=== PATIENT | female | born 1930 | race Caucasian/White ===

== ENCOUNTER 2018-10-21 22:39 | Inpatient (IN) ==
[2018-10-21] MEDS ORDERED: ONDANSETRON 4 MG/2 ML VIAL IV STA (23:43)
[2018-10-21] MEDS ORDERED: DILTIAZEM 50 MG/10 ML VIAL IV STA (23:43)
[2018-10-22 00:05] LABS: Basophils % 0.4 % (0.0-0.8); Eosinophils # 0.1 10*3/uL (0.0-0.87); Eosinophils % 1.4 % (0.00-10.9); Hematocrit 39.2 VOL% (35.7-47.0); Hemoglobin 13.1 GM/DL (12.0-16.0); Immature Granulocytes % 0.5 %; Immature Granulocytes Absolute 0.05 #; Lymphocytes # 1.8 10*3/uL (1.4-4.0); Lymphocytes % 17.8 % (21.3-54.2); Mean Corpuscular HGB Conc 33.4 GM/DL (32-36); Mean Corpuscular Volume 95.8 FL (87-102); Mean Platelet Volume 10.2 FL (9.6-12.0); Monocytes % 9.4 % (1.7-12.7); Neutrophils % 70.5 % (38.7-73.9); Platelet Count 214 T/CUMM (130-400); Red Blood Count 4.09 MC/CUMM (3.8-5.5); Red Cell Distribution Width 15.4 % (9.3-17.3); White Blood Count 10.2 T/CUMM (4-12)
[2018-10-22 00:17] LABS: PT Patient Result 11.1 SECS; Partial Thromboplastin Time 26.4 SECS (0-40)
[2018-10-22 00:31] LABS: Alanine Aminotransferase 18 U/L (13-56); Albumin 3.6 G/DL (3.4-5.0); Alkaline Phosphatase 88 U/L (45-117); Aspartate Amino Transferase 15 U/L (0-37); Bilirubin,Total < 0.39 MG/DL (0.2-1.0); Blood Urea Nitrogen 34 MG/DL (7-18); Calcium 9.3 MG/DL (8.5-10.1); Glucose 151 MG/DL (74-106); Osmolality,Calculated 287.5 MOS/KG (273-304); Total Protein 7.9 G/DL (6.4-8.3); Troponin I < 0.015 NG/ML (0.00-0.045)
[2018-10-22] MEDS ORDERED: dilTIAZem Drip 125 MG/125 ML PREMIX IV SCH ×2 (01:00→02:00)
[2018-10-22] MEDS ORDERED: diphenhydrAMINE CAP 25 MG CAPSULE PO PRN (01:50)
[2018-10-22] MEDS ORDERED: ONDANSETRON 4 MG/2 ML VIAL IV PRN (01:50)
[2018-10-22] MEDS ORDERED: ACETAMINOPHEN 325 MG TABLET PO PRN (01:50)
[2018-10-22 02:22] LABS: Risk Ratio 4.23; VLDL CHOLESTEROL 31.2 MG/DL
[2018-10-22] MEDS ORDERED: hydrALAZINE 20 MG/1 ML VIAL IV PRN (04:22)
[2018-10-22] MEDS: ENOXAPARIN 80 MG/0.8 ML SYRINGE SUBCUT SCH ×2 (04:30→14:51)
[2018-10-22 07:32] LABS: Barbiturates Screen,Urine Negative (Negative); Benzodiazepines Screen,Urine Negative (Negative); Cannabinoid Screen,Urine Negative (Negative); Opiate Screen,Urine Negative (Negative); Phencyclidine Screen,Urine Negative (Negative)
[2018-10-22 07:33] LABS: Apearance,Urine CLOUDY (Clear); Bilirubin,Urine Negative (Negative); Blood, Urine Small mg/dL (Negative); Glucose,Urine (UA) Negative (Negative); Ketones,Urine Negative (Negative); Nitrite,Urine Positive (Negative); Protein,Urine Negative; RBC,Urine 5 /HPF (0-4); Urine Color Yellow (Yellow); Urine Specific Gravity 1.009 (1.001-1.035); Urine Urobilinogen < 2.0 EU/DL (0.2-1.0); WBC,Urine 230 /HPF (0-6)
[2018-10-22] MEDS ORDERED: METOPROLOL TARTRATE 25 MG TABLET PO SCH (09:00)
[2018-10-22] MEDS ORDERED: NICOTINE 21 MG/24 HR PATCH TRANSDERM PRN (09:00)
[2018-10-22] MEDS: PANTOPRAZOLE 40 MG TABLET PO SCH (09:27)
[2018-10-22] MEDS ORDERED: CLOPIDOGREL 75 MG TABLET PO SCH ×2 (14:00)
[2018-10-22] MEDS ORDERED: ASPIRIN CHEW 81 MG TABLET PO SCH (14:00)
[2018-10-22] MEDS: DILTIAZEM 30 MG TABLET PO SCH ×2 (14:50→21:40)
[2018-10-22] MEDS: OLMESARTAN 20 MG TABLET PO SCH (14:51)
[2018-10-22] MEDS ORDERED: MEPERIDINE 50 MG PO PRN (15:14)
[2018-10-22 16:30] LABS: CKMB % 7.5 %
[2018-10-22 16:33] LABS: Troponin I 2.93 NG/ML (0.00-0.045)
[2018-10-22] MEDS ORDERED: ENALAPRIL 2.5 MG/2 ML VIAL IV ONE (17:16)
[2018-10-22] MEDS ORDERED: AMIODARONE INJ 450 MG in DEXTROSE 5% 241 ML IV SCH ×2 (17:30→23:30)
[2018-10-22] MEDS ORDERED: WARFARIN 3 MG TABLET PO SCH (18:00)
[2018-10-22 19:54] LABS: CKMB % 6.8 %
[2018-10-22 19:57] LABS: Troponin I 2.09 NG/ML (0.00-0.045)
[2018-10-22] MEDS: METOPROLOL TARTRATE 25 MG TABLET PO SCH (21:39)
[2018-10-23] MEDS: ENOXAPARIN 80 MG/0.8 ML SYRINGE SUBCUT SCH ×2 (03:04→15:03)
[2018-10-23] MEDS ORDERED: MEPERIDINE 50 MG/1 ML VIAL IV PRN (05:22)
[2018-10-23 05:54] LABS: Basophils % 0.5 % (0.0-0.8); Eosinophils # 0.2 10*3/uL (0.0-0.87); Eosinophils % 2.4 % (0.00-10.9); Hemoglobin 12.5 GM/DL (12.0-16.0); Immature Granulocytes % 0.2 %; Immature Granulocytes Absolute 0.02 #; Lymphocytes # 2.3 10*3/uL (1.4-4.0); Lymphocytes % 26.2 % (21.3-54.2); Mean Corpuscular HGB Conc 36.8 GM/DL (32-36); Mean Corpuscular Volume 101.5 FL (87-102); Mean Platelet Volume 10.6 FL (9.6-12.0); Monocytes % 10.7 % (1.7-12.7); Platelet Count 212 T/CUMM (130-400); Red Blood Count 3.35 MC/CUMM (3.8-5.5); Red Cell Distribution Width 19.2 % (9.3-17.3); White Blood Count 8.6 T/CUMM (4-12)
[2018-10-23 06:03] LABS: PT Patient Result 10.9 SECS
[2018-10-23 06:12] LABS: Calcium 8.7 MG/DL (8.5-10.1); Osmolality,Calculated 286.3 MOS/KG (273-304)
[2018-10-23] MEDS: GABAPENTIN 300 MG CAPSULE PO SCH ×3 (09:14→20:51)
[2018-10-23] MEDS: DILTIAZEM 30 MG TABLET PO SCH (09:14)
[2018-10-23] MEDS: METOPROLOL TARTRATE 25 MG TABLET PO SCH ×2 (09:16→20:52)
[2018-10-23] MEDS: AMIODARONE 200 MG TABLET PO SCH ×2 (09:16→20:50)
[2018-10-23] MEDS: OLMESARTAN 20 MG TABLET PO SCH (09:16)
[2018-10-23] MEDS: PANTOPRAZOLE 40 MG TABLET PO SCH (09:16)
[2018-10-23] MEDS ORDERED: MEPERIDINE 50 MG PO PRN (09:36)
[2018-10-23] MEDS ORDERED: DILTIAZEM CD 120 MG CAPSULE PO SCH (10:00)
[2018-10-23] MEDS ORDERED: amLODIPine 5 MG TABLET PO SCH (10:00)
[2018-10-23] MEDS: MEPERIDINE 50 MG/1 ML VIAL IV SCH ×3 (11:00→23:07)
[2018-10-23] MEDS: hydrALAZINE 25 MG TABLET PO SCH ×2 (15:05→20:50)
[2018-10-23] MEDS ORDERED: FAMOTIDINE 20 MG TABLET PO SCH (21:00)
[2018-10-24] MEDS: ENOXAPARIN 80 MG/0.8 ML SYRINGE SUBCUT SCH (03:15)
[2018-10-24] MEDS ORDERED: hydrALAZINE 25 MG TABLET PO SCH (03:55)
[2018-10-24] MEDS: MEPERIDINE 50 MG/1 ML VIAL IV SCH ×2 (04:27→11:31)
[2018-10-24 05:22] LABS: PT Patient Result 10.7 SECS
[2018-10-24 05:50] LABS: Troponin I 0.706 NG/ML (0.00-0.045)
[2018-10-24] MEDS: GABAPENTIN 300 MG CAPSULE PO SCH (08:40)
[2018-10-24] MEDS: OLMESARTAN 20 MG TABLET PO SCH (08:42)
[2018-10-24] MEDS: PANTOPRAZOLE 40 MG TABLET PO SCH (08:42)
[2018-10-24] MEDS: AMIODARONE 200 MG TABLET PO SCH (08:42)
[2018-10-24] MEDS ORDERED: CARVEDILOL 6.25 MG TABLET PO SCH (09:00)
[2018-10-24] MEDS ORDERED: cefTRIAXone 1,000 MG in SYRINGE 1 EACH IV ONE (11:35)
[2018-10-24 13:02] VITALS: BP 144/65
[2018-10-24] MEDS ORDERED: WARFARIN 3 MG TABLET PO SCH (18:00)
[2018-10-24] MEDS ORDERED: EZETIMIBE 10 MG TABLET PO SCH (21:00)
== END 2018-10-24 15:30 | disposition home or self-care (01) | DRG 281 ==
LOC: N.ED 22:39 → N.EDINP 22:39 → N.TELES 10-22 03:08
PROVIDERS: ADMIT Internal Medicine Cardiovascular Disease; ATTEND Internal Medicine Cardiovascular Disease

== ENCOUNTER 2019-04-03 17:16 | Inpatient (IN) ==
[2019-04-03 18:21] LABS: Albumin 1.9 G/DL (3.4-5.0); Bilirubin,Total 0.9 MG/DL (0.2-1.0); Calcium 7.6 MG/DL (8.5-10.1); Osmolality,Calculated 283.4 MOS/KG (273-304); Total Protein 5.1 G/DL (6.4-8.3)
[2019-04-03 18:23] LABS: Basophils # 0.1 10*3/uL (0.0-0.2); Basophils % 0.2 % (0.0-0.8); Eosinophils % 0.1 % (0.00-10.9); Hematocrit 29.2 VOL% (35.7-47.0); Hemoglobin 9.8 GM/DL (12.0-16.0); Immature Granulocytes % 3.5 %; Immature Granulocytes Absolute 1.32 #; Lymphocytes # 0.8 10*3/uL (1.4-4.0); Mean Corpuscular HGB Conc 33.6 GM/DL (32-36); Mean Corpuscular Volume 98.3 FL (87-102); Mean Platelet Volume 10.9 FL (9.6-12.0); Monocytes % 4.5 % (1.7-12.7); NRBC # 0.03 10*3/uL; Neutrophils % 89.7 % (38.7-73.9); Platelet Count 272 T/CUMM (130-400); Red Blood Count 2.97 MC/CUMM (3.8-5.5); Red Cell Distribution Width 14.7 % (9.3-17.3); White Blood Count 37.4 T/CUMM (4-12)
[2019-04-03 18:51] LABS: Apearance,Urine Slightly Hazy (Clear); Bilirubin,Urine Negative (Negative); Blood, Urine Negative (Negative); Glucose,Urine (UA) Negative (Negative); Hyaline Casts,Urine 4 /LPF (0-3); Ketones,Urine Negative (Negative); Mucus,Urine Occasional /LPF (Occasional); Nitrite,Urine Negative (Negative); Protein,Urine Negative; RBC,Urine 1 /HPF (0-4); Squamous Epithelial Cell,Urine Occasional /HPF (0-10); Urine Color Amber (Yellow); Urine Specific Gravity 1.025 (1.001-1.035); Urine Urobilinogen < 2.0 EU/DL (0.2-1.0); WBC,Urine 6 /HPF (0-6)
[2019-04-03] MEDS ORDERED: SODIUM CHLORIDE 0.9% 1,000 ML IV STA (19:01)
[2019-04-03 19:07] LABS: Band Neutrophils 8 % (0-10); Lymphocytes 1 % (20-55); Platelet Estimate Normal; Segmented Neutrophils 87 % (50-85); Total Cells Counted 100
[2019-04-03] MEDS ORDERED: ONDANSETRON 4 MG/2 ML VIAL IV PRN (23:07)
[2019-04-03] MEDS: SODIUM CHLORIDE 0.9% 1,000 ML IV SCH (23:29)
[2019-04-04] MEDS: VANCOMYCIN 50 MG/ML 60 ML/BOTTLE PO SCH ×5 (01:00→23:11)
[2019-04-04] MEDS: PIPERACILLIN/TAZOBACTAM 3,375 MG in SODIUM CHLORIDE 0.9% 100 ML IV SCH ×3 (01:16→17:49)
[2019-04-04] MEDS: MEPERIDINE 50 MG/1 ML VIAL IV PRN ×3 (02:32→14:34)
[2019-04-04 06:00] LABS: Basophils # 0.1 10*3/uL (0.0-0.2); Basophils % 0.3 % (0.0-0.8); Eosinophils % 0.1 % (0.00-10.9); Hematocrit 29.9 VOL% (35.7-47.0); Hemoglobin 10.1 GM/DL (12.0-16.0); Immature Granulocytes % 5.3 %; Immature Granulocytes Absolute 1.85 #; Lymphocytes # 0.8 10*3/uL (1.4-4.0); Lymphocytes % 2.4 % (21.3-54.2); Mean Corpuscular HGB Conc 33.8 GM/DL (32-36); Mean Platelet Volume 11.1 FL (9.6-12.0); Monocytes % 4.5 % (1.7-12.7); NRBC # 0.06 10*3/uL; Neutrophils % 87.4 % (38.7-73.9); Platelet Count 272 T/CUMM (130-400); Red Blood Count 3.05 MC/CUMM (3.8-5.5); Red Cell Distribution Width 14.8 % (9.3-17.3)
[2019-04-04 06:25] LABS: Band Neutrophils 11 % (0-10); Lymphocytes 5 % (20-55); Segmented Neutrophils 81 % (50-85); Total Cells Counted 100
[2019-04-04 06:26] LABS: Anisocytosis 1+; Platelet Estimate Normal
[2019-04-04 06:31] LABS: Albumin 1.6 G/DL (3.4-5.0); Bilirubin,Total 0.9 MG/DL (0.2-1.0); Calcium 7.3 MG/DL (8.5-10.1); Risk Ratio 10.21; Thyroid Stimulating Hormone 0.303 uIU/ml (0.358-3.74); Total Protein 4.6 G/DL (6.4-8.3); VLDL CHOLESTEROL 27.8 MG/DL
[2019-04-04] MEDS ORDERED: MAGNESIUM SULF RIDER 2 GM in PREMIX 1 EACH IV PRN (07:15)
[2019-04-04] MEDS ORDERED: MAGNESIUM SULF RIDER 4 GM in PREMIX 1 EACH IV PRN (07:15)
[2019-04-04 08:07] LABS: INR 1.6; PT Patient Result 17.3 SECS (9.6-12.2)
[2019-04-04] MEDS ORDERED: carvediloL 6.25 MG TABLET PO SCH (09:00)
[2019-04-04] MEDS: OLMESARTAN 20 MG TABLET PO SCH (09:15)
[2019-04-04] MEDS: BUDESONIDE/FORMOTEROL 80-4.5 INHALER 6.9 GM INH SCH ×2 (09:16→20:46)
[2019-04-04] MEDS: ENOXAPARIN 80 MG/0.8 ML SYRINGE SUBCUT SCH ×2 (12:36→23:11)
[2019-04-04] MEDS: SODIUM CHLORIDE 0.9% 1,000 ML IV SCH (12:37)
[2019-04-04] MEDS: GABAPENTIN 300 MG CAPSULE PO SCH ×2 (14:34→20:46)
[2019-04-04] MEDS ORDERED: MEPERIDINE 50 MG/1 ML VIAL IV PRN (15:32)
[2019-04-04] MEDS: WARFARIN 5 MG TABLET PO SCH (17:49)
[2019-04-04] MEDS: carvediloL 6.25 MG TABLET PO SCH (17:50)
[2019-04-04] MEDS: CHOLECALCIFEROL 1,000 UNIT TABLET PO SCH (20:46)
[2019-04-05] MEDS: PIPERACILLIN/TAZOBACTAM 3,375 MG in SODIUM CHLORIDE 0.9% 100 ML IV SCH ×2 (00:47→12:45)
[2019-04-05] MEDS: SODIUM CHLORIDE 0.9% 1,000 ML IV SCH ×2 (03:44→16:01)
[2019-04-05 06:09] LABS: Basophils # 0.2 10*3/uL (0.0-0.2); Basophils % 0.4 % (0.0-0.8); Eosinophils # 0.1 10*3/uL (0.0-0.87); Eosinophils % 0.1 % (0.00-10.9); Hematocrit 32.1 VOL% (35.7-47.0); Hemoglobin 10.6 GM/DL (12.0-16.0); Immature Granulocytes % 3.5 %; Immature Granulocytes Absolute 1.21 #; Lymphocytes # 1.1 10*3/uL (1.4-4.0); Lymphocytes % 3.2 % (21.3-54.2); Mean Corpuscular Volume 95.3 FL (87-102); Mean Platelet Volume 11.1 FL (9.6-12.0); Monocytes % 6.9 % (1.7-12.7); NRBC # 0.18 10*3/uL; Neutrophils % 85.9 % (38.7-73.9); Platelet Count 284 T/CUMM (130-400); Red Blood Count 3.37 MC/CUMM (3.8-5.5); White Blood Count 34.6 T/CUMM (4-12)
[2019-04-05] MEDS: VANCOMYCIN 50 MG/ML 60 ML/BOTTLE PO SCH ×3 (06:15→18:10)
[2019-04-05 06:16] LABS: PT Patient Result 21.5 SECS (9.6-12.2)
[2019-04-05 06:27] LABS: Albumin 1.3 G/DL (3.4-5.0); Bilirubin,Total 0.7 MG/DL (0.2-1.0); Calcium 7.5 MG/DL (8.5-10.1); Osmolality,Calculated 291.1 MOS/KG (273-304); Total Protein 4.3 G/DL (6.4-8.3)
[2019-04-05 06:57] LABS: Burr Cells Slight; Eosinophils 1 % (0-10); Lymphocytes 5 % (20-55); Ovalocytes Slight; Platelet Estimate Adequate; Segmented Neutrophils 85 % (50-85); Total Cells Counted 100
[2019-04-05] MEDS ORDERED: Tadalafil [Cialis] 5 MG PO SCH (09:00)
[2019-04-05] MEDS: CHOLECALCIFEROL 1,000 UNIT TABLET PO SCH ×2 (10:53→20:57)
[2019-04-05] MEDS: GABAPENTIN 300 MG CAPSULE PO SCH ×3 (10:53→20:57)
[2019-04-05] MEDS: BUDESONIDE/FORMOTEROL 80-4.5 INHALER 6.9 GM INH SCH ×2 (10:53→20:57)
[2019-04-05] MEDS: carvediloL 6.25 MG TABLET PO SCH ×2 (10:53→18:10)
[2019-04-05] MEDS ORDERED: TUBERCULIN SKIN TEST 0.1 ML SYRINGE INTRADERM ONE (12:17)
[2019-04-05] MEDS: OLMESARTAN 20 MG TABLET PO SCH (12:45)
[2019-04-05 16:53] LABS: Free T4 (Free Thyroxine) 0.88 NG/DL (0.76-1.46)
[2019-04-05] MEDS: WARFARIN 5 MG TABLET PO SCH (18:10)
[2019-04-06] MEDS: SODIUM CHLORIDE 0.9% 1,000 ML IV SCH ×2 (00:46→12:43)
[2019-04-06] MEDS: VANCOMYCIN 50 MG/ML 60 ML/BOTTLE PO SCH ×4 (00:46→21:51)
[2019-04-06 07:36] LABS: Basophils # 0.1 10*3/uL (0.0-0.2); Basophils % 0.3 % (0.0-0.8); Eosinophils # 0.1 10*3/uL (0.0-0.87); Eosinophils % 0.2 % (0.00-10.9); Hematocrit 31.9 VOL% (35.7-47.0); Hemoglobin 10.4 GM/DL (12.0-16.0); Immature Granulocytes % 3.9 %; Immature Granulocytes Absolute 1.34 #; Lymphocytes # 1.3 10*3/uL (1.4-4.0); Lymphocytes % 3.9 % (21.3-54.2); Mean Corpuscular HGB Conc 32.6 GM/DL (32-36); Mean Corpuscular Volume 95.8 FL (87-102); Mean Platelet Volume 10.3 FL (9.6-12.0); Monocytes % 5.2 % (1.7-12.7); NRBC # 0.03 10*3/uL; Neutrophils % 86.5 % (38.7-73.9); Platelet Count 310 T/CUMM (130-400); Red Blood Count 3.33 MC/CUMM (3.8-5.5); Red Cell Distribution Width 15.3 % (9.3-17.3); White Blood Count 34.2 T/CUMM (4-12)
[2019-04-06 07:43] LABS: INR 2.4
[2019-04-06 07:58] LABS: Band Neutrophils 9 % (0-10); Burr Cells Slight; Lymphocytes 5 % (20-55); Nucleated Red Blood Cells 1 (0-5); Segmented Neutrophils 85 % (50-85); Total Cells Counted 100
[2019-04-06 07:59] LABS: Hypochromasia Slight; Microcytosis Slight; Platelet Estimate Normal
[2019-04-06 08:02] LABS: Albumin 1.5 G/DL (3.4-5.0); Bilirubin,Total 0.7 MG/DL (0.2-1.0); Calcium 7.4 MG/DL (8.5-10.1); Osmolality,Calculated 293.1 MOS/KG (273-304); Total Protein 4.7 G/DL (6.4-8.3)
[2019-04-06] MEDS: GABAPENTIN 300 MG CAPSULE PO SCH ×3 (10:10→21:48)
[2019-04-06] MEDS: carvediloL 6.25 MG TABLET PO SCH ×2 (10:10→17:23)
[2019-04-06] MEDS: BUDESONIDE/FORMOTEROL 80-4.5 INHALER 6.9 GM INH SCH ×2 (10:11→21:52)
[2019-04-06] MEDS: CHOLECALCIFEROL 1,000 UNIT TABLET PO SCH ×2 (10:11→21:48)
[2019-04-06] MEDS: WARFARIN 5 MG TABLET PO SCH (21:48)
[2019-04-07] MEDS: SODIUM CHLORIDE 0.9% 1,000 ML IV SCH ×2 (00:12→12:40)
[2019-04-07] MEDS: VANCOMYCIN 50 MG/ML 60 ML/BOTTLE PO SCH ×4 (00:13→17:13)
[2019-04-07 05:09] LABS: Basophils # 0.1 10*3/uL (0.0-0.2); Basophils % 0.3 % (0.0-0.8); Eosinophils # 0.1 10*3/uL (0.0-0.87); Eosinophils % 0.3 % (0.00-10.9); Hematocrit 27.9 VOL% (35.7-47.0); Hemoglobin 9.1 GM/DL (12.0-16.0); Immature Granulocytes % 3.3 %; Lymphocytes % 4.3 % (21.3-54.2); Mean Corpuscular HGB Conc 32.6 GM/DL (32-36); Mean Corpuscular Volume 94.9 FL (87-102); Mean Platelet Volume 10.4 FL (9.6-12.0); Monocytes % 6.4 % (1.7-12.7); Neutrophils % 85.4 % (38.7-73.9); Platelet Count 288 T/CUMM (130-400); Red Blood Count 2.94 MC/CUMM (3.8-5.5); Red Cell Distribution Width 15.3 % (9.3-17.3)
[2019-04-07 05:43] LABS: INR 2.8
[2019-04-07 05:48] LABS: Albumin 1.5 G/DL (3.4-5.0); Band Neutrophils 1 % (0-10); Bilirubin,Total 0.5 MG/DL (0.2-1.0); Calcium 7.4 MG/DL (8.5-10.1); Lymphocytes 4 % (20-55); Osmolality,Calculated 294.8 MOS/KG (273-304); Platelet Estimate Adequate; Segmented Neutrophils 89 % (50-85); Total Cells Counted 100; Total Protein 4.5 G/DL (6.4-8.3)
[2019-04-07 05:49] LABS: Burr Cells Slight; Hypochromasia Slight; Microcytosis Slight
[2019-04-07 06:11] LABS: PT Patient Result 29.9 SECS (9.6-12.2)
[2019-04-07] MEDS: GABAPENTIN 300 MG CAPSULE PO SCH ×3 (09:06→21:41)
[2019-04-07] MEDS: CHOLECALCIFEROL 1,000 UNIT TABLET PO SCH ×2 (09:06→21:42)
[2019-04-07] MEDS: carvediloL 6.25 MG TABLET PO SCH ×2 (09:07→17:12)
[2019-04-07] MEDS: BUDESONIDE/FORMOTEROL 80-4.5 INHALER 6.9 GM INH SCH ×2 (09:07→22:26)
[2019-04-07] MEDS: WARFARIN 5 MG TABLET PO SCH (17:12)
[2019-04-07] MEDS: ACETAMINOPHEN 325 MG TABLET PO PRN (21:42)
[2019-04-08] MEDS: VANCOMYCIN 50 MG/ML 60 ML/BOTTLE PO SCH ×4 (00:46→17:33)
[2019-04-08 04:48] LABS: Basophils % 0.2 % (0.0-0.8); Eosinophils # 0.3 10*3/uL (0.0-0.87); Eosinophils % 1.7 % (0.00-10.9); Hematocrit 28.8 VOL% (35.7-47.0); Hemoglobin 9.2 GM/DL (12.0-16.0); Immature Granulocytes Absolute 0.47 #; Lymphocytes # 0.9 10*3/uL (1.4-4.0); Lymphocytes % 5.9 % (21.3-54.2); Mean Corpuscular HGB Conc 31.9 GM/DL (32-36); Mean Corpuscular Volume 97.3 FL (87-102); Mean Platelet Volume 10.6 FL (9.6-12.0); Monocytes % 6.9 % (1.7-12.7); Neutrophils % 82.3 % (38.7-73.9); Platelet Count 245 T/CUMM (130-400); Red Blood Count 2.96 MC/CUMM (3.8-5.5); Red Cell Distribution Width 15.5 % (9.3-17.3); White Blood Count 15.5 T/CUMM (4-12)
[2019-04-08 05:25] LABS: Albumin 1.6 G/DL (3.4-5.0); Bilirubin,Total 0.8 MG/DL (0.2-1.0); Calcium 7.5 MG/DL (8.5-10.1); Osmolality,Calculated 289.8 MOS/KG (273-304); Total Protein 4.6 G/DL (6.4-8.3)
[2019-04-08 06:10] LABS: INR 3.6
[2019-04-08 06:15] LABS: PT Patient Result 38.9 SECS (9.6-12.2)
[2019-04-08] MEDS: ACETAMINOPHEN 325 MG TABLET PO PRN ×2 (06:51→21:45)
[2019-04-08] MEDS: CHOLECALCIFEROL 1,000 UNIT TABLET PO SCH ×2 (09:25→21:45)
[2019-04-08] MEDS: GABAPENTIN 300 MG CAPSULE PO SCH ×3 (09:26→21:45)
[2019-04-08] MEDS: carvediloL 6.25 MG TABLET PO SCH ×2 (09:26→17:31)
[2019-04-08] MEDS: BUDESONIDE/FORMOTEROL 80-4.5 INHALER 6.9 GM INH SCH ×2 (09:26→21:48)
[2019-04-08] MEDS: ASPIRIN EC 81 MG TABLET PO SCH (14:16)
[2019-04-08] MEDS ORDERED: LACTULOSE 20 GM/30 ML UDCUP PO ONE (16:08)
[2019-04-08] MEDS ORDERED: BISACODYL 5 MG TABLET PO ONE (16:09)
[2019-04-08] MEDS ORDERED: BISACODYL 10 MG SUPP RECTAL ONE (21:00)
[2019-04-08] MEDS ORDERED: ROSUVASTATIN 10 MG TABLET PO SCH (21:00)
[2019-04-09] MEDS: VANCOMYCIN 50 MG/ML 60 ML/BOTTLE PO SCH ×3 (00:36→11:46)
[2019-04-09] MEDS: ACETAMINOPHEN 325 MG TABLET PO PRN (06:56)
[2019-04-09 07:03] LABS: Basophils % 0.1 % (0.0-0.8); Eosinophils # 0.2 10*3/uL (0.0-0.87); Hemoglobin 9.6 GM/DL (12.0-16.0); Immature Granulocytes % 1.9 %; Immature Granulocytes Absolute 0.28 #; Lymphocytes # 0.9 10*3/uL (1.4-4.0); Lymphocytes % 6.1 % (21.3-54.2); Mean Corpuscular HGB Conc 33.1 GM/DL (32-36); Mean Corpuscular Volume 98.3 FL (87-102); Mean Platelet Volume 10.3 FL (9.6-12.0); Neutrophils % 82.9 % (38.7-73.9); Platelet Count 216 T/CUMM (130-400); Red Blood Count 2.95 MC/CUMM (3.8-5.5); Red Cell Distribution Width 15.7 % (9.3-17.3); White Blood Count 14.9 T/CUMM (4-12)
[2019-04-09 07:25] LABS: Albumin 1.6 G/DL (3.4-5.0); Bilirubin,Total 0.5 MG/DL (0.2-1.0); Calcium 7.5 MG/DL (8.5-10.1); Osmolality,Calculated 285.7 MOS/KG (273-304); Total Protein 4.6 G/DL (6.4-8.3)
[2019-04-09] MEDS ORDERED: ZINC OXIDE PASTE 113 GM TUBE TOP PRN (08:35)
[2019-04-09] MEDS: ASPIRIN EC 81 MG TABLET PO SCH (08:37)
[2019-04-09] MEDS: carvediloL 6.25 MG TABLET PO SCH (08:37)
[2019-04-09] MEDS: GABAPENTIN 300 MG CAPSULE PO SCH (08:37)
[2019-04-09] MEDS: CHOLECALCIFEROL 1,000 UNIT TABLET PO SCH (08:37)
[2019-04-09] MEDS: BUDESONIDE/FORMOTEROL 80-4.5 INHALER 6.9 GM INH SCH (08:43)
[2019-04-09 11:26] VITALS: BP 92/49
== END 2019-04-09 12:10 | disposition home or self-care (01) | DRG 871 ==
LOC: EDUNIT# → EDBD → N.ED 17:16 → SUATTDRO 20:48 → N.EDINP 20:48 → N.TELEN 22:33 → N.5E 04-06 19:23
PROVIDERS: ADMIT Internal Medicine; ATTEND Hospitalist

== ENCOUNTER 2019-04-11 09:26 | Inpatient (IN) ==
[2019-04-11] MEDS ORDERED: ONDANSETRON 4 MG/2 ML VIAL IV STA (09:57)
[2019-04-11] MEDS ORDERED: SODIUM CHLORIDE 0.9% 500 ML IV STA (09:57)
[2019-04-11] MEDS ORDERED: PANTOPRAZOLE 40 MG VIAL IV STA (09:57)
[2019-04-11 10:52] LABS: Basophils # 0.1 10*3/uL (0.0-0.2); Basophils % 0.2 % (0.0-0.8); Hematocrit 20.3 VOL% (35.7-47.0); Immature Granulocytes % 1.7 %; Immature Granulocytes Absolute 0.52 #; Lymphocytes # 1.5 10*3/uL (1.4-4.0); Lymphocytes % 4.9 % (21.3-54.2); Mean Corpuscular HGB Conc 36.9 GM/DL (32-36); Mean Corpuscular Volume 106.3 FL (87-102); Mean Platelet Volume 10.7 FL (9.6-12.0); Monocytes % 4.3 % (1.7-12.7); Neutrophils % 88.9 % (38.7-73.9)
[2019-04-11 10:55] LABS: Hemoglobin 7.5 GM/DL (12.0-16.0); Platelet Count 299 T/CUMM (130-400); Red Blood Count 1.91 MC/CUMM (3.8-5.5); White Blood Count 30.6 T/CUMM (4-12)
[2019-04-11] MEDS ORDERED: SODIUM CHLORIDE 0.9% 2,400 ML IV ONE (10:58)
[2019-04-11] MEDS ORDERED: MEROPENEM 500 MG in SODIUM CHLORIDE 0.9% 100 ML IV SCH (11:00)
[2019-04-11] MEDS ORDERED: PIPERACILLIN/TAZOBACTAM 3,375 MG in SODIUM CHLORIDE 0.9% 100 ML IV SCH (11:00)
[2019-04-11 11:07] LABS: Albumin 1.7 G/DL (3.4-5.0); Bilirubin,Total 0.5 MG/DL (0.2-1.0); Calcium 7.5 MG/DL (8.5-10.1); Osmolality,Calculated 293.5 MOS/KG (273-304); Total Protein 4.9 G/DL (6.4-8.3)
[2019-04-11 11:09] LABS: Band Neutrophils 7 % (0-10); Lymphocytes 1 % (20-55); Segmented Neutrophils 90 % (50-85); Total Cells Counted 100
[2019-04-11 11:10] LABS: Hypochromasia Slight; Macrocytosis 1+; Platelet Estimate Normal
[2019-04-11 11:15] LABS: PT Patient Result 62.8 SECS (9.6-12.2)
[2019-04-11 11:18] LABS: INR 5.9
[2019-04-11] MEDS ORDERED: SCOPOLAMINE 1.5 MG PATCH TRANSDERM ONE (11:23)
[2019-04-11] MEDS: ONDANSETRON 4 MG/2 ML VIAL IV PRN (13:31)
[2019-04-11] MEDS: SODIUM CHLORIDE 0.9% 1,000 ML IV SCH (13:31)
[2019-04-11] MEDS: MEROPENEM 500 MG in SODIUM CHLORIDE 0.9% 100 ML IV SCH ×2 (14:02→20:52)
[2019-04-11] MEDS ORDERED: FUROSEMIDE 40 MG/4 ML VIAL IV ONE (14:27)
[2019-04-11] MEDS ORDERED: ALBUTEROL/IPRATROPIUM 3 ML NEB RESP TX PRN (14:29)
[2019-04-11] MEDS ORDERED: ALBUTEROL/IPRATROPIUM 3 ML NEB RESP TX ONE (14:29)
[2019-04-11] MEDS: PANTOPRAZOLE INJ 200 MG in SODIUM CHLORIDE 0.9% 250 ML IV SCH (14:33)
[2019-04-11] MEDS: ALBUTEROL/IPRATROPIUM 3 ML NEB RESP TX SCH ×2 (14:39→19:52)
[2019-04-11] MEDS: VANCOMYCIN 50 MG/ML 60 ML/BOTTLE PO SCH ×2 (14:47→20:52)
[2019-04-11] MEDS ORDERED: SODIUM CHLORIDE 0.9% 1,000 ML IV PRN (15:49)
[2019-04-11] MEDS ORDERED: ZINC OXIDE PASTE 113 GM TUBE TOP PRN (16:23)
[2019-04-11] MEDS ORDERED: PHYTONADIONE 10 MG/1 ML AMP SUBCUT ONE (16:30)
[2019-04-11] MEDS: CHOLESTYRAMINE 4 GM PACK PO SCH ×2 (18:42→20:52)
[2019-04-12] MEDS: VANCOMYCIN 50 MG/ML 60 ML/BOTTLE PO SCH ×5 (02:50→23:03)
[2019-04-12] MEDS: MEROPENEM 500 MG in SODIUM CHLORIDE 0.9% 100 ML IV SCH ×3 (03:06→22:30)
[2019-04-12] MEDS ORDERED: MENTHOL/ZINC OXIDE OINT 71 GM JAR TOP PRN (03:15)
[2019-04-12] MEDS: ALBUTEROL/IPRATROPIUM 3 ML NEB RESP TX SCH ×7 (04:16→23:20)
[2019-04-12] MEDS: ACETAMINOPHEN 325 MG TABLET PO PRN ×2 (05:44→22:34)
[2019-04-12 07:39] LABS: Albumin 1.6 G/DL (3.4-5.0); Bilirubin,Total 0.8 MG/DL (0.2-1.0); Calcium 7.4 MG/DL (8.5-10.1); Osmolality,Calculated 295.3 MOS/KG (273-304); Total Protein 4.7 G/DL (6.4-8.3)
[2019-04-12 07:40] LABS: Folate 23.4 NG/ML (5.4-24.0); Vitamin B12 839 PG/ML (211-911)
[2019-04-12 07:53] LABS: % Iron Saturation 20.4 % (18-50); Ferritin 722.9 ng/ml (8-252)
[2019-04-12 08:16] LABS: Basophils # 0.1 10*3/uL (0.0-0.2); Basophils % 0.2 % (0.0-0.8); Hematocrit 24.9 VOL% (35.7-47.0); Hemoglobin 8.6 GM/DL (12.0-16.0); Immature Granulocytes % 1.2 %; Immature Granulocytes Absolute 0.36 #; Lymphocytes # 1.3 10*3/uL (1.4-4.0); Lymphocytes % 4.5 % (21.3-54.2); Mean Corpuscular HGB Conc 34.5 GM/DL (32-36); Mean Corpuscular Volume 96.1 FL (87-102); Mean Platelet Volume 10.3 FL (9.6-12.0); Monocytes % 4.3 % (1.7-12.7); Neutrophils % 89.8 % (38.7-73.9); Platelet Count 248 T/CUMM (130-400); Red Blood Count 2.59 MC/CUMM (3.8-5.5); Red Cell Distribution Width 15.2 % (9.3-17.3); White Blood Count 29.9 T/CUMM (4-12)
[2019-04-12 08:29] LABS: INR 3.2
[2019-04-12 08:31] LABS: PT Patient Result 34.9 SECS (9.6-12.2)
[2019-04-12 08:44] LABS: Band Neutrophils 2 % (0-10); Lymphocytes 2 % (20-55); Platelet Estimate Adequate; Segmented Neutrophils 92 % (50-85); Total Cells Counted 100
[2019-04-12 08:45] LABS: Hypochromasia Slight; Macrocytosis Slight
[2019-04-12] MEDS: LACTOBACILLUS ACIDOPHILUS/BULGARICUS CAPLET PO SCH (08:50)
[2019-04-12] MEDS: CHOLESTYRAMINE 4 GM PACK PO SCH ×2 (08:50→22:35)
[2019-04-12 09:23] LABS: Sedimentation Rate-Westergren 25 MM/HR (0-30)
[2019-04-12] MEDS: SODIUM CHLORIDE 0.9% 1,000 ML IV SCH (12:58)
[2019-04-12] MEDS ORDERED: NON-FORMULARY MEDICATION (Tadalafil [Cialis] 5 MG) PO SCH (13:15)
[2019-04-12] MEDS: carvediloL 12.5 MG TABLET PO SCH ×2 (14:15→22:34)
[2019-04-12] MEDS: ASCORBIC ACID 500 MG TABLET PO SCH (14:20)
[2019-04-12] MEDS: PANTOPRAZOLE INJ 200 MG in SODIUM CHLORIDE 0.9% 250 ML IV SCH (14:20)
[2019-04-12] MEDS: DESITIN 4OZ/NYSTATIN 15 GRAM MIXTURE PASTE TOP SCH ×2 (16:02→22:46)
[2019-04-12] MEDS: ROSUVASTATIN 10 MG TABLET PO SCH (22:34)
[2019-04-12] MEDS: SILDENAFIL 20 MG TABLET PO SCH (22:34)
[2019-04-13] MEDS: ALBUTEROL/IPRATROPIUM 3 ML NEB RESP TX SCH ×5 (03:18→19:40)
[2019-04-13] MEDS: MEROPENEM 500 MG in SODIUM CHLORIDE 0.9% 100 ML IV SCH ×3 (05:08→21:42)
[2019-04-13] MEDS: VANCOMYCIN 50 MG/ML 60 ML/BOTTLE PO SCH ×3 (05:09→18:50)
[2019-04-13 06:31] LABS: Basophils % 0.1 % (0.0-0.8); Hematocrit 24.9 VOL% (35.7-47.0); Hemoglobin 8.8 GM/DL (12.0-16.0); Immature Granulocytes % 0.8 %; Immature Granulocytes Absolute 0.18 #; Lymphocytes % 4.5 % (21.3-54.2); Mean Corpuscular HGB Conc 35.3 GM/DL (32-36); Mean Corpuscular Volume 102.5 FL (87-102); Mean Platelet Volume 10.4 FL (9.6-12.0); Monocytes % 4.5 % (1.7-12.7); NRBC # 0.02 10*3/uL; Neutrophils % 90.1 % (38.7-73.9); Platelet Count 267 T/CUMM (130-400); Red Blood Count 2.43 MC/CUMM (3.8-5.5); Red Cell Distribution Width 19.1 % (9.3-17.3); White Blood Count 22.5 T/CUMM (4-12)
[2019-04-13 06:39] LABS: INR 1.6; PT Patient Result 16.9 SECS (9.6-12.2)
[2019-04-13 06:52] LABS: Albumin 1.5 G/DL (3.4-5.0); Bilirubin,Total 1.1 MG/DL (0.2-1.0); Calcium 7.4 MG/DL (8.5-10.1); Osmolality,Calculated 301.4 MOS/KG (273-304); Total Protein 4.3 G/DL (6.4-8.3)
[2019-04-13 07:01] LABS: Hypochromasia 1+; Lymphocytes 2 % (20-55); Macrocytosis 1+; Segmented Neutrophils 94 % (50-85); Total Cells Counted 100
[2019-04-13 07:02] LABS: Platelet Estimate Normal; Polychromasia Slight
[2019-04-13] MEDS: ACETAMINOPHEN 325 MG TABLET PO PRN ×3 (08:47→21:38)
[2019-04-13] MEDS ORDERED: LIDOCAINE 2% 5 ML VIAL ONE (09:00)
[2019-04-13] MEDS ORDERED: propofoL 200 MG/20 ML VIAL IV ONE (09:00)
[2019-04-13] MEDS ORDERED: ETOMIDATE 20 MG/10 ML VIAL IV ONE (09:00)
[2019-04-13 09:57] LABS: Hemoglobin A1 (Alkaline) 97.2 % (96.5-98.5); Hemoglobin A2 (Alkaline) 2.8 % (1.5-3.5)
[2019-04-13] MEDS: DESITIN 4OZ/NYSTATIN 15 GRAM MIXTURE PASTE TOP SCH ×2 (10:00→21:54)
[2019-04-13] MEDS ORDERED: FUROSEMIDE 40 MG/4 ML VIAL IV ONE (11:46)
[2019-04-13] MEDS: LACTATED RINGERS 1,000 ML IV SCH (12:30)
[2019-04-13] MEDS: carvediloL 12.5 MG TABLET PO SCH ×2 (15:52→21:39)
[2019-04-13] MEDS: LACTOBACILLUS ACIDOPHILUS/BULGARICUS CAPLET PO SCH (15:52)
[2019-04-13] MEDS: ASPIRIN EC 81 MG TABLET PO SCH (15:53)
[2019-04-13] MEDS: SILDENAFIL 20 MG TABLET PO SCH ×2 (15:53→21:38)
[2019-04-13] MEDS: ASCORBIC ACID 500 MG TABLET PO SCH (15:53)
[2019-04-13] MEDS: CHOLESTYRAMINE 4 GM PACK PO SCH ×2 (15:53→21:54)
[2019-04-13] MEDS: ROSUVASTATIN 10 MG TABLET PO SCH (21:38)
[2019-04-14] MEDS: ALBUTEROL/IPRATROPIUM 3 ML NEB RESP TX SCH ×7 (00:14→22:48)
[2019-04-14] MEDS: VANCOMYCIN 50 MG/ML 60 ML/BOTTLE PO SCH ×4 (00:59→17:40)
[2019-04-14] MEDS: MEROPENEM 500 MG in SODIUM CHLORIDE 0.9% 100 ML IV SCH ×3 (06:07→21:12)
[2019-04-14 06:12] LABS: Albumin 1.4 G/DL (3.4-5.0); Bilirubin,Total 0.6 MG/DL (0.2-1.0); Calcium 7.4 MG/DL (8.5-10.1); Osmolality,Calculated 301.3 MOS/KG (273-304); Total Protein 4.2 G/DL (6.4-8.3)
[2019-04-14 06:20] LABS: INR 1.4; PT Patient Result 15.4 SECS (9.6-12.2)
[2019-04-14 06:36] LABS: Basophils % 0.1 % (0.0-0.8); Eosinophils # 0.1 10*3/uL (0.0-0.87); Eosinophils % 0.7 % (0.00-10.9); Hematocrit 25.1 VOL% (35.7-47.0); Immature Granulocytes % 0.8 %; Immature Granulocytes Absolute 0.12 #; Lymphocytes # 1.4 10*3/uL (1.4-4.0); Mean Corpuscular HGB Conc 35.9 GM/DL (32-36); Mean Corpuscular Volume 104.1 FL (87-102); Mean Platelet Volume 10.4 FL (9.6-12.0); Monocytes % 7.1 % (1.7-12.7); NRBC # 0.02 10*3/uL; Neutrophils % 82.3 % (38.7-73.9); Platelet Count 262 T/CUMM (130-400); Red Blood Count 2.41 MC/CUMM (3.8-5.5); Red Cell Distribution Width 21.2 % (9.3-17.3); White Blood Count 15.1 T/CUMM (4-12)
[2019-04-14] MEDS: PANTOPRAZOLE 40 MG VIAL IV SCH ×2 (08:10→21:13)
[2019-04-14] MEDS: LACTATED RINGERS 1,000 ML IV SCH (08:15)
[2019-04-14] MEDS: ASCORBIC ACID 500 MG TABLET PO SCH (08:15)
[2019-04-14] MEDS: SILDENAFIL 20 MG TABLET PO SCH ×2 (08:15→21:13)
[2019-04-14] MEDS: ASPIRIN EC 81 MG TABLET PO SCH (08:15)
[2019-04-14] MEDS: LACTOBACILLUS ACIDOPHILUS/BULGARICUS CAPLET PO SCH (08:15)
[2019-04-14] MEDS: carvediloL 12.5 MG TABLET PO SCH ×2 (08:15→21:13)
[2019-04-14] MEDS: DESITIN 4OZ/NYSTATIN 15 GRAM MIXTURE PASTE TOP SCH ×2 (08:15→21:14)
[2019-04-14] MEDS: SODIUM CHLORIDE 0.9% 1,000 ML IV SCH (10:29)
[2019-04-14] MEDS: PANTOPRAZOLE INJ 200 MG in SODIUM CHLORIDE 0.9% 250 ML IV SCH (10:29)
[2019-04-14] MEDS: CHOLESTYRAMINE 4 GM PACK PO SCH ×2 (10:47→21:13)
[2019-04-14] MEDS: SODIUM CHLORIDE 0.9% IV SCH (15:25)
[2019-04-14] MEDS: VORICONAZOLE IV SCH (15:25)
[2019-04-14] MEDS: ONDANSETRON 4 MG/2 ML VIAL IV PRN (19:32)
[2019-04-14] MEDS: ROSUVASTATIN 10 MG TABLET PO SCH (21:14)
[2019-04-15] MEDS: PROMETHAZINE 25 MG/1 ML VIAL IM PRN (00:16)
[2019-04-15] MEDS: VANCOMYCIN 50 MG/ML 60 ML/BOTTLE PO SCH ×4 (01:30→18:53)
[2019-04-15] MEDS: ALBUTEROL/IPRATROPIUM 3 ML NEB RESP TX SCH ×6 (02:40→23:55)
[2019-04-15] MEDS: VORICONAZOLE IV SCH ×2 (02:51→14:20)
[2019-04-15] MEDS: SODIUM CHLORIDE 0.9% IV SCH ×2 (02:51→14:20)
[2019-04-15] MEDS: MEROPENEM 500 MG in SODIUM CHLORIDE 0.9% 100 ML IV SCH (07:01)
[2019-04-15 07:19] LABS: Basophils % 0.1 % (0.0-0.8); Eosinophils # 0.1 10*3/uL (0.0-0.87); Eosinophils % 0.6 % (0.00-10.9); Hematocrit 26.2 VOL% (35.7-47.0); Hemoglobin 9.2 GM/DL (12.0-16.0); Immature Granulocytes % 0.6 %; Immature Granulocytes Absolute 0.07 #; Lymphocytes # 1.4 10*3/uL (1.4-4.0); Lymphocytes % 10.9 % (21.3-54.2); Mean Corpuscular HGB Conc 35.1 GM/DL (32-36); Mean Corpuscular Volume 106.5 FL (87-102); Mean Platelet Volume 10.6 FL (9.6-12.0); Monocytes % 7.8 % (1.7-12.7); NRBC # 0.02 10*3/uL; Platelet Count 284 T/CUMM (130-400); Red Blood Count 2.46 MC/CUMM (3.8-5.5); Red Cell Distribution Width 21.3 % (9.3-17.3); White Blood Count 12.6 T/CUMM (4-12)
[2019-04-15 07:30] LABS: INR 1.3; PT Patient Result 14.6 SECS (9.6-12.2)
[2019-04-15 07:40] LABS: Albumin 1.4 G/DL (3.4-5.0); Bilirubin,Total 0.4 MG/DL (0.2-1.0); Calcium 7.2 MG/DL (8.5-10.1); Osmolality,Calculated 295.6 MOS/KG (273-304); Total Protein 4.3 G/DL (6.4-8.3)
[2019-04-15] MEDS: SILDENAFIL 20 MG TABLET PO SCH (09:54)
[2019-04-15] MEDS: ASCORBIC ACID 500 MG TABLET PO SCH (09:54)
[2019-04-15] MEDS: LACTOBACILLUS ACIDOPHILUS/BULGARICUS CAPLET PO SCH (09:54)
[2019-04-15] MEDS: carvediloL 12.5 MG TABLET PO SCH (09:54)
[2019-04-15] MEDS: PANTOPRAZOLE 40 MG VIAL IV SCH (09:54)
[2019-04-15] MEDS: DESITIN 4OZ/NYSTATIN 15 GRAM MIXTURE PASTE TOP SCH (09:54)
[2019-04-15] MEDS: ASPIRIN EC 81 MG TABLET PO SCH (09:54)
[2019-04-15] MEDS: LACTATED RINGERS 1,000 ML IV SCH (10:04)
[2019-04-15] MEDS: CHOLESTYRAMINE 4 GM PACK PO SCH (11:37)
[2019-04-15] MEDS: ONDANSETRON 4 MG/2 ML VIAL IV PRN (17:59)
[2019-04-16] MEDS: carvediloL 12.5 MG TABLET PO SCH ×2 (00:01→10:12)
[2019-04-16] MEDS: DESITIN 4OZ/NYSTATIN 15 GRAM MIXTURE PASTE TOP SCH ×2 (00:05→10:15)
[2019-04-16] MEDS: ROSUVASTATIN 10 MG TABLET PO SCH (00:05)
[2019-04-16] MEDS: PROMETHAZINE 25 MG/1 ML VIAL IM PRN (00:08)
[2019-04-16] MEDS: ALBUTEROL/IPRATROPIUM 3 ML NEB RESP TX SCH ×4 (03:47→15:18)
[2019-04-16] MEDS: SODIUM CHLORIDE 0.9% IV SCH (04:56)
[2019-04-16] MEDS: VORICONAZOLE IV SCH (04:56)
[2019-04-16] MEDS: VANCOMYCIN 50 MG/ML 60 ML/BOTTLE PO SCH ×3 (05:03→14:51)
[2019-04-16 06:16] LABS: INR 1.3; PT Patient Result 14.2 SECS (9.6-12.2)
[2019-04-16] MEDS ORDERED: FLUCONAZOLE INJ 200 MG in PREMIX 1 EACH IV SCH (10:00)
[2019-04-16] MEDS ORDERED: FUROSEMIDE 40 MG/4 ML VIAL IV ONE (10:04)
[2019-04-16] MEDS: ONDANSETRON 4 MG/2 ML VIAL IV PRN (10:11)
[2019-04-16] MEDS: PANTOPRAZOLE 40 MG VIAL IV SCH ×2 (10:12)
[2019-04-16] MEDS: ASPIRIN EC 81 MG TABLET PO SCH (10:12)
[2019-04-16] MEDS: ASCORBIC ACID 500 MG TABLET PO SCH (10:13)
[2019-04-16] MEDS: SILDENAFIL 20 MG TABLET PO SCH ×2 (10:13)
[2019-04-16] MEDS: LACTOBACILLUS ACIDOPHILUS/BULGARICUS CAPLET PO SCH (10:14)
[2019-04-16 10:15] LABS: Basophils % 0.1 % (0.0-0.8); Eosinophils # 0.1 10*3/uL (0.0-0.87); Eosinophils % 0.7 % (0.00-10.9); Hematocrit 27.8 VOL% (35.7-47.0); Hemoglobin 8.8 GM/DL (12.0-16.0); Immature Granulocytes % 0.8 %; Lymphocytes # 1.5 10*3/uL (1.4-4.0); Lymphocytes % 11.3 % (21.3-54.2); Mean Corpuscular HGB Conc 31.7 GM/DL (32-36); Mean Corpuscular Volume 102.6 FL (87-102); Mean Platelet Volume 10.4 FL (9.6-12.0); Monocytes % 6.9 % (1.7-12.7); Neutrophils % 80.2 % (38.7-73.9); Platelet Count 282 T/CUMM (130-400); Red Blood Count 2.71 MC/CUMM (3.8-5.5); Red Cell Distribution Width 17.3 % (9.3-17.3); White Blood Count 12.8 T/CUMM (4-12)
[2019-04-16] MEDS: LACTATED RINGERS 1,000 ML IV SCH (10:15)
[2019-04-16 10:36] LABS: Calcium 7.2 MG/DL (8.5-10.1); Osmolality,Calculated 295.6 MOS/KG (273-304)
[2019-04-16] MEDS: ACETAMINOPHEN 325 MG TABLET PO PRN (12:43)
[2019-04-16] MEDS ORDERED: FUROSEMIDE 40 MG TABLET PO SCH ×2 (14:48→21:00)
[2019-04-16 16:37] VITALS: BP 110/60
[2019-04-16 17:27] LABS: Apearance,Urine CLEAR (Clear); Bacteria,Urine Occasional /HPF (Few); Bilirubin,Urine Negative (Negative); Blood, Urine Negative (Negative); Glucose,Urine (UA) Negative (Negative); Hyaline Casts,Urine 4 /LPF (0-3); Ketones,Urine Negative (Negative); Nitrite,Urine Negative (Negative); Protein,Urine Negative; RBC,Urine 1 /HPF (0-4); Urine Color Straw (Yellow); Urine Urobilinogen < 2.0 EU/DL (0.2-1.0); WBC,Urine 2 /HPF (0-6)
[2019-04-16] MEDS ORDERED: WARFARIN 2.5 MG TABLET PO SCH (18:00)
[2019-04-17] MEDS ORDERED: FLUCONAZOLE 200 MG TABLET PO SCH (09:00)
== END 2019-04-16 18:50 | DRG 871 ==
LOC: N.ED 09:26 → SUATTDRO 11:03 → N.EDINP 11:03 → N.5E 11:26
PROVIDERS: ADMIT Hospitalist; ATTEND Internal Medicine

== ENCOUNTER 2019-04-16 23:14 | Inpatient (IN) ==
[2019-04-17 01:35] LABS: Basophils % 0.1 % (0.0-0.8); Eosinophils # 0.1 10*3/uL (0.0-0.87); Eosinophils % 0.9 % (0.00-10.9); Hematocrit 26.2 VOL% (35.7-47.0); Hemoglobin 8.1 GM/DL (12.0-16.0); Immature Granulocytes Absolute 0.14 #; Lymphocytes # 1.4 10*3/uL (1.4-4.0); Lymphocytes % 9.5 % (21.3-54.2); Mean Corpuscular HGB Conc 30.9 GM/DL (32-36); Mean Platelet Volume 10.4 FL (9.6-12.0); Monocytes % 7.6 % (1.7-12.7); Neutrophils % 80.9 % (38.7-73.9); Platelet Count 302 T/CUMM (130-400); Red Blood Count 2.62 MC/CUMM (3.8-5.5); White Blood Count 14.5 T/CUMM (4-12)
[2019-04-17 01:45] LABS: INR 2.3
[2019-04-17 01:49] LABS: PT Patient Result 24.4 SECS (9.6-12.2)
[2019-04-17 02:38] LABS: Calcium 7.3 MG/DL (8.5-10.1); Osmolality,Calculated 292.8 MOS/KG (273-304)
[2019-04-17 03:36] LABS: Apearance,Urine CLEAR (Clear); Bacteria,Urine Occasional /HPF (Few); Bilirubin,Urine Negative (Negative); Blood, Urine Negative (Negative); Glucose,Urine (UA) Negative (Negative); Hyaline Casts,Urine 33 /LPF (0-3); Ketones,Urine Negative (Negative); Mucus,Urine Occasional /LPF (Occasional); Nitrite,Urine Negative (Negative); Protein,Urine Negative; RBC,Urine <1 /HPF (0-4); Squamous Epithelial Cell,Urine Occasional /HPF (0-10); Urine Color Yellow (Yellow); Urine Specific Gravity 1.017 (1.001-1.035); Urine Urobilinogen < 2.0 EU/DL (0.2-1.0); WBC,Urine 19 /HPF (0-6)
[2019-04-17] MEDS ORDERED: ONDANSETRON 4 MG/2 ML VIAL IV PRN (05:27)
[2019-04-17] MEDS ORDERED: SODIUM CHLORIDE 0.9% 1,000 ML IV SCH (05:27)
[2019-04-17] MEDS ORDERED: AMPICILLIN/SULBACTAM 3,000 MG in SODIUM CHLORIDE 0.9% 100 ML IV SCH (05:27)
[2019-04-17 07:23] LABS: Albumin 1.5 G/DL (3.4-5.0); Bilirubin,Total 0.8 MG/DL (0.2-1.0); Calcium 7.2 MG/DL (8.5-10.1); Osmolality,Calculated 294.8 MOS/KG (273-304); Total Protein 4.4 G/DL (6.4-8.3)
[2019-04-17] MEDS: ALBUTEROL/IPRATROPIUM 3 ML NEB RESP TX SCH ×3 (07:25→19:17)
[2019-04-17] MEDS: VANCOMYCIN 50 MG/ML 60 ML/BOTTLE PO SCH ×3 (07:26→20:25)
[2019-04-17] MEDS ORDERED: carvediloL 12.5 MG TABLET PO SCH (08:00)
[2019-04-17] MEDS: ASPIRIN EC 81 MG TABLET PO SCH (08:52)
[2019-04-17] MEDS: LACTOBACILLUS ACIDOPHILUS/BULGARICUS CAPLET PO SCH (08:53)
[2019-04-17] MEDS: FLUCONAZOLE 200 MG TABLET PO SCH (08:53)
[2019-04-17] MEDS: BUDESONIDE/FORMOTEROL 80-4.5 INHALER 6.9 GM INH SCH ×2 (08:54→20:30)
[2019-04-17] MEDS ORDERED: OLMESARTAN 20 MG TABLET PO SCH (09:00)
[2019-04-17] MEDS ORDERED: Tadalafil [Cialis] 2.5 MG PO SCH (09:00)
[2019-04-17] MEDS: CEFEPIME 2,000 MG in SODIUM CHLORIDE 0.9% 100 ML IV SCH ×2 (10:22→20:29)
[2019-04-17] MEDS ORDERED: ZIPRASIDONE 20 MG/1 ML VIAL IM ONE ×3 (11:10→21:00)
[2019-04-17] MEDS ORDERED: FUROSEMIDE 40 MG TABLET PO SCH (11:12)
[2019-04-17 11:36] LABS: ABG HCO3 22.6 MMOL/L (20-26); ABG PCO2 32.6 MM HG (35-48); ABG PH 7.459 (7.35-7.45); ABG PO2 80.2 MM HG (80-95); ABG TCO2 23.6 MMOL/L (23-27)
[2019-04-17 11:42] LABS: Thyroid Stimulating Hormone 1.63 uIU/ml (0.358-3.74)
[2019-04-17] MEDS ORDERED: WARFARIN 2.5 MG TABLET PO SCH (18:00)
[2019-04-17] MEDS: carvediloL 3.125 MG TABLET PO SCH (18:21)
[2019-04-17] MEDS: FAMOTIDINE 20 MG/2 ML VIAL IV SCH (19:31)
[2019-04-17] MEDS: FUROSEMIDE 40 MG/4 ML VIAL IV SCH (19:31)
[2019-04-17] MEDS: ROSUVASTATIN 10 MG TABLET PO SCH (20:25)
[2019-04-18] MEDS: ALBUTEROL/IPRATROPIUM 3 ML NEB RESP TX SCH ×4 (00:07→19:55)
[2019-04-18] MEDS: VANCOMYCIN 50 MG/ML 60 ML/BOTTLE PO SCH ×4 (01:41→17:30)
[2019-04-18] MEDS: POTASSIUM CHLORIDE RIDER 10 MEQ in PREMIX 1 EACH IV PRN ×4 (03:53→08:22)
[2019-04-18] MEDS: ACETAMINOPHEN 325 MG TABLET PO PRN ×2 (04:07→13:48)
[2019-04-18] MEDS: FAMOTIDINE 20 MG/2 ML VIAL IV SCH ×2 (05:29→17:29)
[2019-04-18] MEDS: CEFEPIME 2,000 MG in SODIUM CHLORIDE 0.9% 100 ML IV SCH ×2 (05:34→17:32)
[2019-04-18 06:33] LABS: Basophils % 0.1 % (0.0-0.8); Eosinophils # 0.1 10*3/uL (0.0-0.87); Eosinophils % 0.8 % (0.00-10.9); Hematocrit 20.5 VOL% (35.7-47.0); Immature Granulocytes % 0.6 %; Immature Granulocytes Absolute 0.07 #; Lymphocytes # 1.1 10*3/uL (1.4-4.0); Lymphocytes % 9.3 % (21.3-54.2); Mean Corpuscular HGB Conc 31.2 GM/DL (32-36); Mean Platelet Volume 10.5 FL (9.6-12.0); Monocytes % 6.9 % (1.7-12.7); Neutrophils % 82.3 % (38.7-73.9); Platelet Count 268 T/CUMM (130-400); Red Blood Count 2.03 MC/CUMM (3.8-5.5); White Blood Count 11.7 T/CUMM (4-12)
[2019-04-18 06:37] LABS: Hemoglobin 6.4 GM/DL (12.0-16.0)
[2019-04-18 06:49] LABS: INR 1.3; PT Patient Result 13.8 SECS (9.6-12.2)
[2019-04-18] MEDS ORDERED: SODIUM CHLORIDE 0.9% 1,000 ML IV PRN (06:52)
[2019-04-18 06:56] LABS: Calcium 7.1 MG/DL (8.5-10.1); Osmolality,Calculated 299.6 MOS/KG (273-304)
[2019-04-18] MEDS ORDERED: AMINO ACIDS/DEXT/LYTES 4.25-5% 2,000 ML IV SCH ×2 (08:00→17:00)
[2019-04-18] MEDS: LACTOBACILLUS ACIDOPHILUS/BULGARICUS CAPLET PO SCH (08:14)
[2019-04-18] MEDS: ASPIRIN EC 81 MG TABLET PO SCH (08:15)
[2019-04-18] MEDS: FUROSEMIDE 40 MG/4 ML VIAL IV SCH (08:15)
[2019-04-18] MEDS: carvediloL 3.125 MG TABLET PO SCH ×2 (08:15→17:30)
[2019-04-18] MEDS: FLUCONAZOLE 200 MG TABLET PO SCH (08:15)
[2019-04-18] MEDS: BUDESONIDE/FORMOTEROL 80-4.5 INHALER 6.9 GM INH SCH ×2 (09:00→21:12)
[2019-04-18 12:47] LABS: Platelet Estimate Normal
[2019-04-18 12:48] LABS: Anisocytosis 3+; Hypochromasia 3+; Macrocytosis 1+; Microcytosis 1+; Ovalocytes Few; Polychromasia Slight
[2019-04-18] MEDS ORDERED: FUROSEMIDE 40 MG/4 ML VIAL IV SCH (21:00)
[2019-04-18] MEDS: ROSUVASTATIN 10 MG TABLET PO SCH (21:12)
[2019-04-19] MEDS: ALBUTEROL/IPRATROPIUM 3 ML NEB RESP TX SCH ×4 (00:05→19:31)
[2019-04-19] MEDS: VANCOMYCIN 50 MG/ML 60 ML/BOTTLE PO SCH ×4 (00:44→17:57)
[2019-04-19 04:59] LABS: Basophils % 0.1 % (0.0-0.8); Eosinophils # 0.3 10*3/uL (0.0-0.87); Eosinophils % 2.4 % (0.00-10.9); Hematocrit 18.6 VOL% (35.7-47.0); Hemoglobin 6.8 GM/DL (12.0-16.0); Immature Granulocytes % 0.5 %; Immature Granulocytes Absolute 0.06 #; Lymphocytes # 1.2 10*3/uL (1.4-4.0); Lymphocytes % 9.5 % (21.3-54.2); Mean Corpuscular HGB Conc 36.6 GM/DL (32-36); Mean Corpuscular Volume 110.7 FL (87-102); Mean Platelet Volume 10.4 FL (9.6-12.0); Neutrophils % 80.5 % (38.7-73.9); Platelet Count 277 T/CUMM (130-400); Red Blood Count 1.68 MC/CUMM (3.8-5.5); Red Cell Distribution Width 22.6 % (9.3-17.3); White Blood Count 12.5 T/CUMM (4-12)
[2019-04-19 05:04] LABS: INR 1.3; PT Patient Result 14.3 SECS (9.6-12.2)
[2019-04-19 05:21] LABS: Band Neutrophils 2 % (0-10); Eosinophils 2 % (0-10); Hypochromasia 2+; Lymphocytes 5 % (20-55); Ovalocytes Slight; Platelet Estimate Adequate; Segmented Neutrophils 88 % (50-85); Total Cells Counted 100
[2019-04-19 05:22] LABS: Microcytosis Slight
[2019-04-19] MEDS: FAMOTIDINE 20 MG/2 ML VIAL IV SCH (05:27)
[2019-04-19 05:28] LABS: Calcium 7.3 MG/DL (8.5-10.1); Osmolality,Calculated 301.8 MOS/KG (273-304)
[2019-04-19] MEDS: CEFEPIME 2,000 MG in SODIUM CHLORIDE 0.9% 100 ML IV SCH (05:43)
[2019-04-19] MEDS ORDERED: SODIUM CHLORIDE 0.9% 1,000 ML IV PRN (07:41)
[2019-04-19] MEDS: LACTOBACILLUS ACIDOPHILUS/BULGARICUS CAPLET PO SCH (08:44)
[2019-04-19] MEDS: ASPIRIN EC 81 MG TABLET PO SCH (08:45)
[2019-04-19] MEDS: carvediloL 3.125 MG TABLET PO SCH ×2 (08:46→17:56)
[2019-04-19] MEDS: BUDESONIDE/FORMOTEROL 80-4.5 INHALER 6.9 GM INH SCH ×2 (08:57→22:45)
[2019-04-19] MEDS ORDERED: FUROSEMIDE 40 MG TABLET PO SCH (09:00)
[2019-04-19] MEDS ORDERED: FLUCONAZOLE 100 MG TABLET PO SCH (09:00)
[2019-04-19] MEDS ORDERED: CEFEPIME 1,000 MG in SODIUM CHLORIDE 0.9% 100 ML IV SCH (14:00)
[2019-04-19] MEDS: ZINC OXIDE 16% PASTE 57 GM TUBE TOP SCH ×2 (17:56→22:46)
[2019-04-19] MEDS: MENTHOL/ZINC OXIDE OINT 71 GM JAR TOP PRN (22:45)
[2019-04-19] MEDS: ROSUVASTATIN 10 MG TABLET PO SCH (22:45)
[2019-04-20] MEDS: ALBUTEROL/IPRATROPIUM 3 ML NEB RESP TX SCH ×3 (00:41→13:42)
[2019-04-20] MEDS: VANCOMYCIN 50 MG/ML 60 ML/BOTTLE PO SCH ×3 (01:35→14:00)
[2019-04-20 05:26] LABS: Hematocrit 27.8 VOL% (35.7-47.0)
[2019-04-20 05:54] LABS: Calcium 7.2 MG/DL (8.5-10.1)
[2019-04-20] MEDS ORDERED: FAMOTIDINE 20 MG/2 ML VIAL IV SCH (09:00)
[2019-04-20] MEDS ORDERED: FLUCONAZOLE INJ 100 MG in IV BAG 1 EACH IV SCH (09:00)
[2019-04-20] MEDS: LACTOBACILLUS ACIDOPHILUS/BULGARICUS CAPLET PO SCH (10:15)
[2019-04-20] MEDS: ASPIRIN EC 81 MG TABLET PO SCH (10:17)
[2019-04-20] MEDS: ZINC OXIDE 16% PASTE 57 GM TUBE TOP SCH (10:18)
[2019-04-20] MEDS: MENTHOL/ZINC OXIDE OINT 71 GM JAR TOP PRN (10:18)
[2019-04-20] MEDS: carvediloL 3.125 MG TABLET PO SCH ×2 (10:19→16:29)
[2019-04-20] MEDS: ACETAMINOPHEN 325 MG TABLET PO PRN (10:20)
[2019-04-20 16:10] VITALS: BP 119/83
== END 2019-04-20 17:00 | DRG 177 ==
LOC: N.ED 23:14 → N.EDINP 04-17 03:32 → SUATTDRO 04-17 03:32 → N.5E 04-17 05:22
PROVIDERS: ADMIT Internal Medicine; ATTEND Internal Medicine

== ENCOUNTER 2019-08-24 11:02 | Inpatient (IN) ==
[2019-08-24] MEDS ORDERED: ONDANSETRON 4 MG/2 ML VIAL IV STA ×3 (11:32→17:50)
[2019-08-24 11:39] LABS: Basophils # 0.1 10*3/uL (0.0-0.2); Basophils % 0.7 % (0.0-0.8); Eosinophils # 0.2 10*3/uL (0.0-0.87); Eosinophils % 1.8 % (0.00-10.9); Hematocrit 35.7 VOL% (35.7-47.0); Hemoglobin 11.9 GM/DL (12.0-16.0); Immature Granulocytes % 0.3 %; Immature Granulocytes Absolute 0.03 #; Lymphocytes # 1.9 10*3/uL (1.4-4.0); Lymphocytes % 20.8 % (21.3-54.2); Mean Corpuscular HGB Conc 33.3 GM/DL (32-36); Mean Corpuscular Volume 93.7 FL (87-102); Mean Platelet Volume 9.6 FL (9.6-12.0); Neutrophils % 68.4 % (38.7-73.9); Platelet Count 351 T/CUMM (130-400); Red Blood Count 3.81 MC/CUMM (3.8-5.5); Red Cell Distribution Width 15.4 % (9.3-17.3); White Blood Count 9.2 T/CUMM (4-12)
[2019-08-24 12:03] LABS: Albumin 2.7 G/DL (3.4-5.0); Calcium 8.3 MG/DL (8.5-10.1); Osmolality,Calculated 262.4 MOS/KG (273-304)
[2019-08-24] MEDS ORDERED: hydrALAZINE 20 MG/1 ML VIAL ONE (12:47)
[2019-08-24] MEDS ORDERED: hydrALAZINE 20 MG/1 ML VIAL IV STA (12:53)
[2019-08-24] MEDS ORDERED: GLUCAGON 1 MG VIAL IM PRN (20:02)
[2019-08-24] MEDS ORDERED: DEXTROSE 50% 25 GM/50 ML VIAL IV PRN (20:02)
[2019-08-24] MEDS: ENOXAPARIN 60 MG/0.6 ML SYRINGE SUBCUT SCH (21:55)
[2019-08-24] MEDS: DEXTROSE 5% NACL 0.45% 1,000 ML IV SCH (21:55)
[2019-08-24] MEDS: ONDANSETRON 4 MG/2 ML VIAL IV PRN (22:20)
[2019-08-25] MEDS: ONDANSETRON 4 MG/2 ML VIAL IV PRN ×3 (03:35→13:15)
[2019-08-25 06:25] LABS: Basophils # 0.1 10*3/uL (0.0-0.2); Basophils % 0.7 % (0.0-0.8); Eosinophils # 0.3 10*3/uL (0.0-0.87); Eosinophils % 3.3 % (0.00-10.9); Hematocrit 33.7 VOL% (35.7-47.0); Hemoglobin 10.8 GM/DL (12.0-16.0); Immature Granulocytes % 0.5 %; Immature Granulocytes Absolute 0.04 #; Lymphocytes # 1.4 10*3/uL (1.4-4.0); Lymphocytes % 16.6 % (21.3-54.2); Mean Corpuscular Volume 98.5 FL (87-102); Mean Platelet Volume 9.7 FL (9.6-12.0); Monocytes % 10.1 % (1.7-12.7); Neutrophils % 68.8 % (38.7-73.9); Platelet Count 301 T/CUMM (130-400); Red Blood Count 3.42 MC/CUMM (3.8-5.5); Red Cell Distribution Width 15.4 % (9.3-17.3); White Blood Count 8.3 T/CUMM (4-12)
[2019-08-25 06:40] LABS: INR 2.1; PT Patient Result 21.4 SECS (9.8-11.9)
[2019-08-25 06:58] LABS: Calcium 7.8 MG/DL (8.5-10.1); Osmolality,Calculated 263.2 MOS/KG (273-304)
[2019-08-25] MEDS ORDERED: MAGNESIUM SULF RIDER 4 GM in PREMIX 1 EACH IV ONE (07:33)
[2019-08-25] MEDS ORDERED: MAGNESIUM SULF RIDER 4 GM in PREMIX 1 EACH IV PRN (07:53)
[2019-08-25] MEDS ORDERED: MAGNESIUM SULF RIDER 2 GM in PREMIX 1 EACH IV PRN (07:53)
[2019-08-25] MEDS ORDERED: carvediloL 6.25 MG TABLET PO SCH (08:00)
[2019-08-25] MEDS ORDERED: carvediloL 3.125 MG TABLET PO SCH (08:00)
[2019-08-25] MEDS ORDERED: POTASSIUM CHLORIDE RIDER 10 MEQ in PREMIX 1 EACH IV SCH (08:00)
[2019-08-25] MEDS: ENOXAPARIN 60 MG/0.6 ML SYRINGE SUBCUT SCH ×2 (08:40→20:58)
[2019-08-25] MEDS: CHOLECALCIFEROL 1,000 UNIT TABLET PO SCH (08:40)
[2019-08-25] MEDS ORDERED: CHOLESTYRAMINE 4 GM PACK PO SCH (09:00)
[2019-08-25] MEDS ORDERED: POTASSIUM CHLORIDE INJ 50 MEQ, MAGNESIUM SULF INJ 4 GM in SODIUM CHLORIDE 0.9% 500 ML IV ONE (09:00)
[2019-08-25] MEDS: ASCORBIC ACID 500 MG TABLET PO SCH ×2 (09:02→22:56)
[2019-08-25] MEDS: hydrALAZINE 25 MG TABLET PO SCH ×2 (16:03→22:58)
[2019-08-25] MEDS: AMIODARONE 200 MG TABLET PO SCH (16:03)
[2019-08-25] MEDS: ONDANSETRON 4 MG/2 ML VIAL IV SCH ×2 (17:12→20:58)
[2019-08-25] MEDS: PANTOPRAZOLE 40 MG VIAL IV SCH (20:59)
[2019-08-25] MEDS ORDERED: WARFARIN 5 MG TABLET PO SCH (21:00)
[2019-08-25] MEDS: carvediloL 12.5 MG TABLET PO SCH (22:57)
[2019-08-25] MEDS: DEXTROSE 5% NACL 0.45% 1,000 ML IV SCH (23:01)
[2019-08-26] MEDS: ONDANSETRON 4 MG/2 ML VIAL IV SCH ×6 (01:47→21:24)
[2019-08-26 06:27] LABS: Basophils # 0.1 10*3/uL (0.0-0.2); Basophils % 0.9 % (0.0-0.8); Eosinophils # 0.3 10*3/uL (0.0-0.87); Eosinophils % 3.7 % (0.00-10.9); Hematocrit 28.5 VOL% (35.7-47.0); Hemoglobin 10.1 GM/DL (12.0-16.0); Immature Granulocytes % 0.6 %; Immature Granulocytes Absolute 0.04 #; Lymphocytes # 1.2 10*3/uL (1.4-4.0); Lymphocytes % 17.4 % (21.3-54.2); Mean Corpuscular HGB Conc 35.4 GM/DL (32-36); Mean Corpuscular Volume 102.5 FL (87-102); Mean Platelet Volume 10.5 FL (9.6-12.0); Monocytes % 7.1 % (1.7-12.7); Neutrophils % 70.3 % (38.7-73.9); Platelet Count 309 T/CUMM (130-400); Red Blood Count 2.78 MC/CUMM (3.8-5.5); Red Cell Distribution Width 17.5 % (9.3-17.3)
[2019-08-26 06:53] LABS: Calcium 7.8 MG/DL (8.5-10.1); Osmolality,Calculated 267.1 MOS/KG (273-304)
[2019-08-26 06:57] LABS: Albumin 2.2 G/DL (3.4-5.0); Bilirubin,Total 0.6 MG/DL (0.2-1.0); Calcium 7.7 MG/DL (8.5-10.1); Osmolality,Calculated 263.4 MOS/KG (273-304); Total Protein 5.7 G/DL (6.4-8.3)
[2019-08-26 09:33] LABS: INR 1.7; PT Patient Result 17.4 SECS (9.8-11.9)
[2019-08-26] MEDS: ASCORBIC ACID 500 MG TABLET PO SCH ×2 (09:57→21:25)
[2019-08-26] MEDS: AMIODARONE 200 MG TABLET PO SCH (09:57)
[2019-08-26] MEDS: CHOLECALCIFEROL 1,000 UNIT TABLET PO SCH (09:57)
[2019-08-26] MEDS: carvediloL 12.5 MG TABLET PO SCH ×2 (09:58→21:24)
[2019-08-26] MEDS: PANTOPRAZOLE 40 MG VIAL IV SCH ×2 (09:58→21:25)
[2019-08-26] MEDS: ENOXAPARIN 60 MG/0.6 ML SYRINGE SUBCUT SCH (09:58)
[2019-08-26] MEDS: hydrALAZINE 25 MG TABLET PO SCH ×3 (09:58→21:25)
[2019-08-26] MEDS: ASPIRIN CHEW 81 MG TABLET PO SCH (09:58)
[2019-08-26] MEDS: WARFARIN 2.5 MG TABLET PO SCH (17:50)
[2019-08-26] MEDS: DEXTROSE 5% NACL 0.45% 1,000 ML IV SCH (21:35)
[2019-08-27] MEDS: ONDANSETRON 4 MG/2 ML VIAL IV SCH ×4 (01:49→12:38)
[2019-08-27] MEDS ORDERED: hydrALAZINE 20 MG/1 ML VIAL IV ONE (06:34)
[2019-08-27 06:54] LABS: Basophils # 0.1 10*3/uL (0.0-0.2); Basophils % 0.7 % (0.0-0.8); Eosinophils # 0.2 10*3/uL (0.0-0.87); Eosinophils % 2.1 % (0.00-10.9); Hematocrit 29.9 VOL% (35.7-47.0); Hemoglobin 10.3 GM/DL (12.0-16.0); Immature Granulocytes % 0.4 %; Immature Granulocytes Absolute 0.03 #; Lymphocytes # 1.1 10*3/uL (1.4-4.0); Lymphocytes % 12.7 % (21.3-54.2); Mean Corpuscular HGB Conc 34.4 GM/DL (32-36); Mean Corpuscular Volume 101.7 FL (87-102); Mean Platelet Volume 11.1 FL (9.6-12.0); Monocytes % 7.5 % (1.7-12.7); Neutrophils % 76.6 % (38.7-73.9); Platelet Count 254 T/CUMM (130-400); Red Blood Count 2.94 MC/CUMM (3.8-5.5); Red Cell Distribution Width 16.6 % (9.3-17.3); White Blood Count 8.6 T/CUMM (4-12)
[2019-08-27 07:09] LABS: INR 1.8; PT Patient Result 18.5 SECS (9.8-11.9); Partial Thromboplastin Time 28.9 SECS (23.9-33.8)
[2019-08-27 07:12] LABS: Hypochromasia 1+; Microcytosis Slight; Platelet Estimate Adequate
[2019-08-27 07:25] LABS: Calcium 8.1 MG/DL (8.5-10.1); Osmolality,Calculated 265.2 MOS/KG (273-304)
[2019-08-27] MEDS: ASPIRIN CHEW 81 MG TABLET PO SCH (10:31)
[2019-08-27] MEDS: AMIODARONE 200 MG TABLET PO SCH (10:31)
[2019-08-27] MEDS: carvediloL 12.5 MG TABLET PO SCH ×2 (10:31→21:51)
[2019-08-27] MEDS: ASCORBIC ACID 500 MG TABLET PO SCH ×2 (10:32→21:51)
[2019-08-27] MEDS: PANTOPRAZOLE 40 MG VIAL IV SCH ×2 (10:35→21:51)
[2019-08-27] MEDS: hydrALAZINE 25 MG TABLET PO SCH ×3 (10:39→21:51)
[2019-08-27] MEDS: CHOLECALCIFEROL 1,000 UNIT TABLET PO SCH (10:40)
[2019-08-27 11:10] LABS: Apearance,Urine CLEAR (Clear); Bilirubin,Urine Negative (Negative); Blood, Urine Negative (Negative); Glucose,Urine (UA) Negative (Negative); Ketones,Urine Negative (Negative); Mucus,Urine Occasional /LPF (Occasional); Nitrite,Urine Negative (Negative); Protein,Urine Negative; RBC,Urine 3 /HPF (0-4); Squamous Epithelial Cell,Urine Occasional /HPF (0-10); Urine Color Yellow (Yellow); Urine Specific Gravity 1.005 (1.001-1.035); Urine Urobilinogen < 2.0 EU/DL (0.2-1.0); WBC,Urine 8 /HPF (0-6)
[2019-08-27] MEDS ORDERED: PROCHLORPERAZINE 10 MG TABLET PO SCH (13:00)
[2019-08-27] MEDS: WARFARIN 2.5 MG TABLET PO SCH (17:08)
[2019-08-27] MEDS: PROCHLORPERAZINE 10 MG TABLET PO SCH ×2 (17:08→21:51)
[2019-08-27] MEDS ORDERED: PROCHLORPERAZINE 25 MG SUPP RECTAL PRN (21:00)
[2019-08-28] MEDS: PROCHLORPERAZINE 10 MG TABLET PO SCH ×6 (01:00→20:31)
[2019-08-28 05:47] LABS: Basophils % 0.2 % (0.0-0.8); Eosinophils # 0.2 10*3/uL (0.0-0.87); Eosinophils % 1.9 % (0.00-10.9); Hematocrit 28.8 VOL% (35.7-47.0); Hemoglobin 10.7 GM/DL (12.0-16.0); Immature Granulocytes % 0.2 %; Immature Granulocytes Absolute 0.02 #; Lymphocytes # 1.2 10*3/uL (1.4-4.0); Lymphocytes % 14.2 % (21.3-54.2); Mean Corpuscular HGB Conc 37.2 GM/DL (32-36); Mean Corpuscular Volume 102.5 FL (87-102); Mean Platelet Volume 10.4 FL (9.6-12.0); Monocytes % 8.1 % (1.7-12.7); Neutrophils % 75.4 % (38.7-73.9); Platelet Count 310 T/CUMM (130-400); Red Blood Count 2.81 MC/CUMM (3.8-5.5); White Blood Count 8.5 T/CUMM (4-12)
[2019-08-28 05:58] LABS: INR 1.8; PT Patient Result 18.3 SECS (9.8-11.9)
[2019-08-28 06:20] LABS: Calcium 8.2 MG/DL (8.5-10.1)
[2019-08-28] MEDS: PANTOPRAZOLE 40 MG VIAL IV SCH ×2 (09:12→20:31)
[2019-08-28] MEDS: AMIODARONE 200 MG TABLET PO SCH (09:26)
[2019-08-28] MEDS: ASPIRIN CHEW 81 MG TABLET PO SCH (09:26)
[2019-08-28] MEDS: ASCORBIC ACID 500 MG TABLET PO SCH ×2 (09:26→20:31)
[2019-08-28] MEDS: CHOLECALCIFEROL 1,000 UNIT TABLET PO SCH (09:26)
[2019-08-28] MEDS: hydrALAZINE 25 MG TABLET PO SCH ×3 (09:26→20:31)
[2019-08-28] MEDS: carvediloL 12.5 MG TABLET PO SCH ×2 (09:27→20:31)
[2019-08-28] MEDS ORDERED: FUROSEMIDE 40 MG/4 ML VIAL IV ONE (15:09)
[2019-08-28] MEDS: WARFARIN 2.5 MG TABLET PO SCH (17:24)
[2019-08-28] MEDS: DEXTROSE 5% NACL 0.45% 1,000 ML IV SCH ×2 (23:18→23:19)
[2019-08-29] MEDS: DEXTROSE 5% NACL 0.45% 1,000 ML IV SCH ×2 (01:50→20:30)
[2019-08-29] MEDS: PROCHLORPERAZINE 10 MG TABLET PO SCH ×3 (01:52→11:16)
[2019-08-29 06:40] LABS: Osmolality,Calculated 264.4 MOS/KG (273-304)
[2019-08-29 07:21] LABS: Basophils # 0.1 10*3/uL (0.0-0.2); Basophils % 0.4 % (0.0-0.8); Eosinophils # 0.2 10*3/uL (0.0-0.87); Eosinophils % 1.1 % (0.00-10.9); Hematocrit 33.6 VOL% (35.7-47.0); Immature Granulocytes % 0.4 %; Immature Granulocytes Absolute 0.06 #; Lymphocytes # 1.4 10*3/uL (1.4-4.0); Lymphocytes % 9.7 % (21.3-54.2); Mean Corpuscular HGB Conc 32.4 GM/DL (32-36); Mean Corpuscular Volume 94.1 FL (87-102); Mean Platelet Volume 10.8 FL (9.6-12.0); Monocytes % 9.3 % (1.7-12.7); Neutrophils % 79.1 % (38.7-73.9); Platelet Count 301 T/CUMM (130-400); Red Blood Count 3.57 MC/CUMM (3.8-5.5); White Blood Count 14.1 T/CUMM (4-12)
[2019-08-29 07:22] LABS: Hemoglobin 10.9 GM/DL (12.0-16.0)
[2019-08-29 08:16] LABS: Hypochromasia 1+; Microcytosis Slight; Platelet Estimate Normal
[2019-08-29] MEDS: PANTOPRAZOLE 40 MG VIAL IV SCH ×2 (10:22→22:33)
[2019-08-29] MEDS: hydrALAZINE 20 MG/1 ML VIAL IV PRN (10:48)
[2019-08-29] MEDS: hydrALAZINE 25 MG TABLET PO SCH ×3 (13:51→22:33)
[2019-08-29] MEDS: ONDANSETRON 4 MG/2 ML VIAL IV SCH ×3 (13:56→21:26)
[2019-08-29] MEDS: carvediloL 12.5 MG TABLET PO SCH ×2 (14:03→22:33)
[2019-08-29] MEDS: ASCORBIC ACID 500 MG TABLET PO SCH ×2 (14:03→22:33)
[2019-08-29] MEDS: AMIODARONE 200 MG TABLET PO SCH (14:03)
[2019-08-29] MEDS: ASPIRIN CHEW 81 MG TABLET PO SCH (14:03)
[2019-08-29] MEDS: CHOLECALCIFEROL 1,000 UNIT TABLET PO SCH (14:03)
[2019-08-29] MEDS: FLUTICASONE 50 MCG NASAL SPRAY 16 GM BOTTLE BOTH NARES SCH ×2 (17:34→22:35)
[2019-08-29] MEDS ORDERED: WARFARIN 7.5 MG TABLET PO SCH (18:00)
[2019-08-29] MEDS: WARFARIN 2.5 MG TABLET PO SCH (18:30)
[2019-08-30] MEDS: ONDANSETRON 4 MG/2 ML VIAL IV SCH ×6 (01:05→20:59)
[2019-08-30 01:41] LABS: Apearance,Urine CLEAR (Clear); Bacteria,Urine Occasional /HPF (Few); Bilirubin,Urine Negative (Negative); Blood, Urine Negative (Negative); Glucose,Urine (UA) Negative (Negative); Hyaline Casts,Urine 3 /LPF (0-3); Ketones,Urine Negative (Negative); Mucus,Urine Occasional /LPF (Occasional); Nitrite,Urine Negative (Negative); Protein,Urine Negative; RBC,Urine 2 /HPF (0-4); Squamous Epithelial Cell,Urine Occasional /HPF (0-10); Urine Color Yellow (Yellow); Urine Specific Gravity 1.009 (1.001-1.035); Urine Urobilinogen < 2.0 EU/DL (0.2-1.0); WBC,Urine 6 /HPF (0-6)
[2019-08-30 06:57] LABS: Basophils % 0.4 % (0.0-0.8); Eosinophils # 0.2 10*3/uL (0.0-0.87); Eosinophils % 1.7 % (0.00-10.9); Hematocrit 31.6 VOL% (35.7-47.0); Hemoglobin 10.3 GM/DL (12.0-16.0); Immature Granulocytes % 0.6 %; Immature Granulocytes Absolute 0.05 #; Lymphocytes # 1.2 10*3/uL (1.4-4.0); Lymphocytes % 13.5 % (21.3-54.2); Mean Corpuscular HGB Conc 32.6 GM/DL (32-36); Mean Corpuscular Volume 100.6 FL (87-102); Mean Platelet Volume 11.2 FL (9.6-12.0); Monocytes % 9.4 % (1.7-12.7); Neutrophils % 74.4 % (38.7-73.9); Platelet Count 174 T/CUMM (130-400); Red Blood Count 3.14 MC/CUMM (3.8-5.5); Red Cell Distribution Width 15.2 % (9.3-17.3)
[2019-08-30 07:18] LABS: PT Patient Result 20.9 SECS (9.8-11.9)
[2019-08-30 07:27] LABS: Calcium 7.8 MG/DL (8.5-10.1); Osmolality,Calculated 259.7 MOS/KG (273-304)
[2019-08-30] MEDS ORDERED: propofoL 200 MG/20 ML VIAL IV ONE (09:00)
[2019-08-30] MEDS ORDERED: ETOMIDATE 20 MG/10 ML VIAL IV ONE (09:00)
[2019-08-30] MEDS ORDERED: LIDOCAINE 2% 5 ML VIAL ONE (09:00)
[2019-08-30] MEDS: AMIODARONE 200 MG TABLET PO SCH (10:11)
[2019-08-30] MEDS: ASPIRIN CHEW 81 MG TABLET PO SCH (10:11)
[2019-08-30] MEDS: hydrALAZINE 25 MG TABLET PO SCH ×3 (10:11→21:02)
[2019-08-30] MEDS: ASCORBIC ACID 500 MG TABLET PO SCH ×2 (10:12→21:01)
[2019-08-30] MEDS: FLUTICASONE 50 MCG NASAL SPRAY 16 GM BOTTLE BOTH NARES SCH ×2 (10:12→21:02)
[2019-08-30] MEDS: CHOLECALCIFEROL 1,000 UNIT TABLET PO SCH (10:12)
[2019-08-30] MEDS: carvediloL 12.5 MG TABLET PO SCH ×2 (10:12→21:02)
[2019-08-30] MEDS: PANTOPRAZOLE 40 MG VIAL IV SCH ×2 (10:12→20:59)
[2019-08-30] MEDS: PIPERACILLIN/TAZOBACTAM 3,375 MG in SODIUM CHLORIDE 0.9% 100 ML IV SCH ×2 (12:32→21:02)
[2019-08-30] MEDS ORDERED: ONDANSETRON 4 MG/2 ML VIAL ONE (13:38)
[2019-08-30] MEDS ORDERED: ONDANSETRON 4 MG/2 ML VIAL IV ONE (13:40)
[2019-08-30] MEDS: DEXTROSE 5% NACL 0.45% 1,000 ML IV SCH (17:57)
[2019-08-31] MEDS: ONDANSETRON 4 MG/2 ML VIAL IV SCH ×6 (01:59→21:22)
[2019-08-31] MEDS: DEXTROSE 5% NACL 0.45% 1,000 ML IV SCH (01:59)
[2019-08-31] MEDS: PIPERACILLIN/TAZOBACTAM 3,375 MG in SODIUM CHLORIDE 0.9% 100 ML IV SCH ×3 (04:14→21:15)
[2019-08-31 07:00] LABS: Basophils # 0.1 10*3/uL (0.0-0.2); Basophils % 0.6 % (0.0-0.8); Eosinophils # 0.5 10*3/uL (0.0-0.87); Eosinophils % 4.6 % (0.00-10.9); Hematocrit 30.6 VOL% (35.7-47.0); Immature Granulocytes % 0.2 %; Immature Granulocytes Absolute 0.02 #; Lymphocytes # 1.2 10*3/uL (1.4-4.0); Lymphocytes % 12.6 % (21.3-54.2); Mean Corpuscular HGB Conc 32.7 GM/DL (32-36); Mean Corpuscular Volume 101.3 FL (87-102); Mean Platelet Volume 10.5 FL (9.6-12.0); Monocytes % 9.8 % (1.7-12.7); Neutrophils % 72.2 % (38.7-73.9); Platelet Count 308 T/CUMM (130-400); Red Blood Count 3.02 MC/CUMM (3.8-5.5); Red Cell Distribution Width 15.7 % (9.3-17.3); White Blood Count 9.7 T/CUMM (4-12)
[2019-08-31 07:11] LABS: INR 1.9; PT Patient Result 19.2 SECS (9.8-11.9); Partial Thromboplastin Time 33.6 SECS (23.9-33.8)
[2019-08-31 08:07] LABS: Albumin 2.2 G/DL (3.4-5.0); Bilirubin,Total 0.7 MG/DL (0.2-1.0); Total Protein 5.7 G/DL (6.4-8.3)
[2019-08-31] MEDS: PANTOPRAZOLE 40 MG VIAL IV SCH ×2 (09:00→21:15)
[2019-08-31] MEDS: FLUTICASONE 50 MCG NASAL SPRAY 16 GM BOTTLE BOTH NARES SCH ×2 (09:03→21:15)
[2019-08-31] MEDS: POTASSIUM CHLORIDE RIDER 10 MEQ in PREMIX 1 EACH IV PRN ×4 (09:06→12:50)
[2019-08-31] MEDS: hydrALAZINE 25 MG TABLET PO SCH ×2 (09:15→15:48)
[2019-08-31] MEDS: carvediloL 12.5 MG TABLET PO SCH (09:15)
[2019-08-31] MEDS: AMIODARONE 200 MG TABLET PO SCH (09:15)
[2019-08-31] MEDS: ASPIRIN CHEW 81 MG TABLET PO SCH (09:15)
[2019-08-31] MEDS: ASCORBIC ACID 500 MG TABLET PO SCH (09:16)
[2019-08-31] MEDS: CHOLECALCIFEROL 1,000 UNIT TABLET PO SCH (09:16)
[2019-08-31] MEDS ORDERED: PHYTONADIONE 10 MG/1 ML AMP SUBCUT ONE (12:13)
[2019-08-31] MEDS: hydrALAZINE 20 MG/1 ML VIAL IV PRN ×2 (12:23→21:30)
[2019-08-31] MEDS ORDERED: cloNIDine 0.2 MG/24 HR PATCH TRANSDERM SCH (14:30)
[2019-08-31] MEDS: HYDROmorphone 2 MG/1 ML VIAL IV PRN (23:10)
[2019-09-01] MEDS: ONDANSETRON 4 MG/2 ML VIAL IV SCH ×7 (02:00→20:53)
[2019-09-01] MEDS: hydrALAZINE 25 MG TABLET PO SCH ×4 (02:33→20:11)
[2019-09-01] MEDS: ASCORBIC ACID 500 MG TABLET PO SCH ×3 (02:34→20:10)
[2019-09-01] MEDS: carvediloL 12.5 MG TABLET PO SCH ×3 (02:34→20:11)
[2019-09-01] MEDS: PIPERACILLIN/TAZOBACTAM 3,375 MG in SODIUM CHLORIDE 0.9% 100 ML IV SCH ×3 (05:05→20:11)
[2019-09-01 05:49] LABS: INR 1.7; PT Patient Result 17.2 SECS (9.8-11.9); Partial Thromboplastin Time 32.1 SECS (23.9-33.8)
[2019-09-01 05:57] LABS: Albumin 2.2 G/DL (3.4-5.0); Bilirubin,Total 0.6 MG/DL (0.2-1.0); Osmolality,Calculated 266.1 MOS/KG (273-304)
[2019-09-01] MEDS: HYDROmorphone 2 MG/1 ML VIAL IV PRN ×2 (07:07→12:26)
[2019-09-01] MEDS: hydrALAZINE 20 MG/1 ML VIAL IV PRN (07:07)
[2019-09-01] MEDS ORDERED: SODIUM CHLORIDE 0.9% 1,000 ML IV PRN (09:12)
[2019-09-01] MEDS ORDERED: LIDOCAINE 1%/EPI INJ 20 ML VIAL ONE (09:33)
[2019-09-01] MEDS ORDERED: BUPIVACAINE MPF 0.25% 30 ML VIAL ONE (09:33)
[2019-09-01] MEDS ORDERED: hydrALAZINE 20 MG/1 ML VIAL ONE (09:52)
[2019-09-01] MEDS ORDERED: SUGAMMADEX 200 MG/2 ML VIAL IV ONE (10:33)
[2019-09-01] MEDS ORDERED: TISSUE ADHESIVE 1 EACH APPLICATOR TOP ONE (10:35)
[2019-09-01] MEDS: FLUTICASONE 50 MCG NASAL SPRAY 16 GM BOTTLE BOTH NARES SCH ×2 (10:52→20:12)
[2019-09-01] MEDS ORDERED: propofoL 200 MG/20 ML VIAL IV ONE (11:07)
[2019-09-01] MEDS ORDERED: MIDAZOLAM 2 MG/2 ML VIAL ONE (11:08)
[2019-09-01] MEDS ORDERED: SEVOFLURANE 1 UNIT/15 MINUTE INH ONE (11:08)
[2019-09-01] MEDS ORDERED: ePHEDrine 50 MG/ML VIAL ONE (11:08)
[2019-09-01] MEDS ORDERED: fentaNYL 100 MCG/2 ML VIAL ONE (11:08)
[2019-09-01] MEDS ORDERED: LIDOCAINE 2% 5 ML VIAL ONE (11:08)
[2019-09-01] MEDS ORDERED: ONDANSETRON 4 MG/2 ML VIAL ONE ×2 (11:08→11:49)
[2019-09-01] MEDS ORDERED: PHENYLEPHRINE 1 MG/10 ML SYRINGE IV ONE (11:09)
[2019-09-01] MEDS ORDERED: ETOMIDATE 40 MG/20 ML VIAL IV ONE (11:09)
[2019-09-01] MEDS ORDERED: ROCURONIUM 100 MG/10 ML VIAL IV ONE (11:09)
[2019-09-01] MEDS ORDERED: SUCCINYLCHOLINE 200 MG/10 ML VIAL ONE (11:09)
[2019-09-01] MEDS ORDERED: hydrALAZINE 20 MG/1 ML VIAL IV ONE ×2 (11:30→11:38)
[2019-09-01] MEDS: DEXTROSE 5% NACL 0.45% 1,000 ML IV SCH ×2 (11:45→20:57)
[2019-09-01] MEDS: CHOLECALCIFEROL 1,000 UNIT TABLET PO SCH (12:23)
[2019-09-01] MEDS: CLORAZEPATE 3.75 MG TABLET PO PRN ×2 (12:23→20:10)
[2019-09-01] MEDS: ASPIRIN CHEW 81 MG TABLET PO SCH (12:24)
[2019-09-01] MEDS: AMIODARONE 200 MG TABLET PO SCH (12:24)
[2019-09-01] MEDS: PANTOPRAZOLE 40 MG VIAL IV SCH ×2 (12:25→20:11)
[2019-09-01] MEDS: WARFARIN 2.5 MG TABLET PO SCH (17:10)
[2019-09-01 18:35] LABS: INR 1.3; PT Patient Result 13.8 SECS (9.8-11.9)
[2019-09-02] MEDS: ONDANSETRON 4 MG/2 ML VIAL IV SCH ×6 (00:06→20:36)
[2019-09-02 03:47] LABS: INR 1.4; PT Patient Result 14.6 SECS (9.8-11.9)
[2019-09-02] MEDS: PIPERACILLIN/TAZOBACTAM 3,375 MG in SODIUM CHLORIDE 0.9% 100 ML IV SCH (04:03)
[2019-09-02] MEDS: hydrALAZINE 20 MG/1 ML VIAL IV PRN (04:04)
[2019-09-02] MEDS: HYDROmorphone 2 MG/1 ML VIAL IV PRN ×4 (06:24→20:39)
[2019-09-02] MEDS: hydrALAZINE 25 MG TABLET PO SCH ×2 (08:31→16:39)
[2019-09-02] MEDS: AMIODARONE 200 MG TABLET PO SCH (08:31)
[2019-09-02] MEDS: CHOLECALCIFEROL 1,000 UNIT TABLET PO SCH (08:31)
[2019-09-02] MEDS: ASPIRIN CHEW 81 MG TABLET PO SCH (08:31)
[2019-09-02] MEDS: carvediloL 12.5 MG TABLET PO SCH (08:31)
[2019-09-02] MEDS: ASCORBIC ACID 500 MG TABLET PO SCH (08:31)
[2019-09-02] MEDS: DEXTROSE 5% NACL 0.45% 1,000 ML IV SCH (08:31)
[2019-09-02] MEDS: FLUTICASONE 50 MCG NASAL SPRAY 16 GM BOTTLE BOTH NARES SCH ×2 (08:32→22:29)
[2019-09-02] MEDS: PANTOPRAZOLE 40 MG VIAL IV SCH (08:33)
[2019-09-02] MEDS: CEFEPIME 1,000 MG in SODIUM CHLORIDE 0.9% 100 ML IV SCH ×3 (10:46→22:31)
[2019-09-02] MEDS: POTASSIUM CHLORIDE 20 MEQ/15 ML UDCUP PER TUBE PRN ×2 (12:38→16:39)
[2019-09-02] MEDS ORDERED: AMIODARONE 200 MG TABLET PER TUBE SCH (17:00)
[2019-09-02] MEDS: carvediloL 12.5 MG TABLET PEG SCH (17:15)
[2019-09-02] MEDS ORDERED: WARFARIN 2.5 MG TABLET PEG SCH (18:00)
[2019-09-02 20:03] LABS: Chlamydia trachomatis Not Detected (NotDetected); Class A beta Lactamase Not Detected (NotDetected); Clostridium difficile A & B Not Detected (NotDetected); E coli (ETEC) O157 Not Detected (NotDetected); Enterovirus D Not Detected (NotDetected); Pseudomonas aeruginosa Not Detected (NotDetected); Rotavirus A & B Not Detected (NotDetected); Salmonella enterica Not Detected (NotDetected); Yersinia enterocolitica Not Detected (NotDetected); mecA-Methicillin Resistance Ge Not Detected (NotDetected)
[2019-09-02] MEDS: hydrALAZINE 25 MG TABLET PEG SCH (20:35)
[2019-09-02] MEDS: ASCORBIC ACID 500 MG TABLET PER TUBE SCH (20:36)
[2019-09-02] MEDS: OMEPRAZOLE ODT 20 MG TABLET PEG SCH (20:36)
[2019-09-03] MEDS: ONDANSETRON 4 MG/2 ML VIAL IV SCH ×4 (00:09→12:15)
[2019-09-03] MEDS: CLORAZEPATE 3.75 MG TABLET PEG PRN ×2 (00:11→09:48)
[2019-09-03] MEDS: hydrALAZINE 20 MG/1 ML VIAL IV PRN (00:11)
[2019-09-03 03:20] LABS: Basophils # 0.1 10*3/uL (0.0-0.2); Basophils % 0.6 % (0.0-0.8); Eosinophils # 0.5 10*3/uL (0.0-0.87); Eosinophils % 6.2 % (0.00-10.9); Hematocrit 27.7 VOL% (35.7-47.0); Hemoglobin 9.2 GM/DL (12.0-16.0); Immature Granulocytes % 0.5 %; Immature Granulocytes Absolute 0.04 #; Lymphocytes # 1.3 10*3/uL (1.4-4.0); Lymphocytes % 15.6 % (21.3-54.2); Mean Corpuscular HGB Conc 33.2 GM/DL (32-36); Mean Corpuscular Volume 102.2 FL (87-102); Mean Platelet Volume 9.9 FL (9.6-12.0); Monocytes % 12.1 % (1.7-12.7); Platelet Count 292 T/CUMM (130-400); Red Blood Count 2.71 MC/CUMM (3.8-5.5); Red Cell Distribution Width 15.6 % (9.3-17.3); White Blood Count 8.4 T/CUMM (4-12)
[2019-09-03 03:38] LABS: Albumin 2.1 G/DL (3.4-5.0); Bilirubin,Total 0.9 MG/DL (0.2-1.0); Calcium 7.6 MG/DL (8.5-10.1); Calcium 7.7 MG/DL (8.5-10.1); Osmolality,Calculated 270.2 MOS/KG (273-304); Osmolality,Calculated 272.1 MOS/KG (273-304); Prealbumin 8.6 MG/DL (20-40); Total Protein 5.8 G/DL (6.4-8.3)
[2019-09-03] MEDS: CEFEPIME 1,000 MG in SODIUM CHLORIDE 0.9% 100 ML IV SCH ×2 (04:52→09:49)
[2019-09-03] MEDS: HYDROmorphone 2 MG/1 ML VIAL IV PRN (07:46)
[2019-09-03] MEDS: FLUTICASONE 50 MCG NASAL SPRAY 16 GM BOTTLE BOTH NARES SCH (09:48)
[2019-09-03] MEDS: CHOLECALCIFEROL 1,000 UNIT TABLET PO SCH (09:48)
[2019-09-03] MEDS: carvediloL 12.5 MG TABLET PEG SCH (09:48)
[2019-09-03] MEDS: ASCORBIC ACID 500 MG TABLET PER TUBE SCH (09:48)
[2019-09-03] MEDS: ASPIRIN CHEW 81 MG TABLET PO SCH (09:48)
[2019-09-03] MEDS: hydrALAZINE 25 MG TABLET PEG SCH (09:48)
[2019-09-03] MEDS: OMEPRAZOLE ODT 20 MG TABLET PEG SCH (09:49)
[2019-09-03 11:26] VITALS: BP 118/44
[2019-09-03] MEDS: DEXTROSE 5% NACL 0.45% 1,000 ML IV SCH (11:39)
== END 2019-09-03 15:07 | DRG 907 ==
LOC: N.ED 11:02 → N.EDINP 11:02 → SUATTDRO 19:51 → N.3E 21:17 → N.2E 08-25 05:09 → N.3E 08-25 14:04 → SUATTDRO 08-27 11:29 → N.4E 08-31 10:05
PROVIDERS: ADMIT Internal Medicine; ATTEND Internal Medicine

== ENCOUNTER 2020-01-02 12:38 | Inpatient (IN) ==
[2020-01-02] MEDS ORDERED: SODIUM CHLORIDE 0.9% 1,000 ML IV STA ×2 (13:15→14:39)
[2020-01-02] MEDS ORDERED: cefTRIAXone 1,000 MG in SODIUM CHLORIDE 0.9% 100 ML IV STA (13:31)
[2020-01-02] MEDS ORDERED: ONDANSETRON 4 MG/2 ML VIAL ONE (13:38)
[2020-01-02 14:17] LABS: Albumin 1.5 G/DL (3.4-5.0); Bilirubin,Total 0.6 MG/DL (0.2-1.0); Calcium 8.1 MG/DL (8.5-10.1); Osmolality,Calculated 279.4 MOS/KG (273-304); Total Protein 5.2 G/DL (6.4-8.3)
[2020-01-02 14:37] LABS: Bilirubin,Urine Negative (Negative); Blood, Urine Negative (Negative); Glucose,Urine (UA) Negative (Negative); Ketones,Urine Negative (Negative); Mucus,Urine Occasional /LPF (Occasional); Nitrite,Urine Negative (Negative); Protein,Urine 30 MG/DL; RBC,Urine 8 /HPF (0-4); Urine Appearance CLOUDY (Clear); Urine Color Amber (Yellow); Urine Specific Gravity 1.014 (1.001-1.035); Urine Urobilinogen < 2.0 EU/DL (0.2-1.0); WBC,Urine 30 /HPF (0-6)
[2020-01-02 14:59] LABS: Barbiturates Screen,Urine Negative (Negative); Benzodiazepines Screen,Urine Positive (Negative); Cannabinoid Screen,Urine Negative (Negative); Opiate Screen,Urine Positive (Negative); Phencyclidine Screen,Urine Negative (Negative)
[2020-01-02 15:34] LABS: Basophils # 0.1 10*3/uL (0.0-0.2); Basophils % 0.3 % (0.0-0.8); Eosinophils % 0.1 % (0.00-10.9); Hematocrit 29.8 VOL% (35.7-47.0); Hemoglobin 9.8 GM/DL (12.0-16.0); Immature Granulocytes % 1.1 %; Immature Granulocytes Absolute 0.38 #; Lymphocytes # 1.3 10*3/uL (1.4-4.0); Lymphocytes % 3.6 % (21.3-54.2); Mean Corpuscular HGB Conc 32.9 GM/DL (32-36); Mean Corpuscular Volume 87.1 FL (87-102); Mean Platelet Volume 10.2 FL (9.6-12.0); Monocytes % 8.5 % (1.7-12.7); Neutrophils % 86.4 % (38.7-73.9); Platelet Count 523 T/CUMM (130-400); Red Blood Count 3.42 MC/CUMM (3.8-5.5); Red Cell Distribution Width 18.2 % (9.3-17.3); White Blood Count 34.9 T/CUMM (4-12)
[2020-01-02 15:55] LABS: Lymphocytes 5 % (20-55); Segmented Neutrophils 86 % (50-85); Total Cells Counted 100
[2020-01-02 15:56] LABS: Anisocytosis 1+; Hypochromasia 1+; Target Cells Few
[2020-01-02 15:57] LABS: Burr Cells Few; Platelet Estimate Adequate
[2020-01-02] MEDS ORDERED: ALBUTEROL 2.5 MG/3 ML NEB RESP TX PRN (16:59)
[2020-01-02] MEDS ORDERED: PIPERACILLIN/TAZOBACTAM 3,375 MG in SODIUM CHLORIDE 0.9% 100 ML IV STA (17:04)
[2020-01-02] MEDS: SODIUM CHLORIDE 0.9% 1,000 ML IV SCH (18:34)
[2020-01-02] MEDS: DOPamine 800 MG/250 ML PREMIX IV PRN (19:16)
[2020-01-02] MEDS ORDERED: PANTOPRAZOLE 40 MG TABLET PO SCH (21:00)
[2020-01-02] MEDS: PANTOPRAZOLE 40 MG VIAL IV SCH (21:59)
[2020-01-03 04:35] LABS: Basophils # 0.2 10*3/uL (0.0-0.2); Basophils % 0.4 % (0.0-0.8); Hematocrit 31.3 VOL% (35.7-47.0); Hemoglobin 10.2 GM/DL (12.0-16.0); Immature Granulocytes % 1.1 %; Immature Granulocytes Absolute 0.46 #; Lymphocytes # 1.2 10*3/uL (1.4-4.0); Lymphocytes % 2.9 % (21.3-54.2); Mean Corpuscular HGB Conc 32.6 GM/DL (32-36); Mean Corpuscular Volume 86.9 FL (87-102); Mean Platelet Volume 9.8 FL (9.6-12.0); Monocytes % 7.1 % (1.7-12.7); Neutrophils % 88.5 % (38.7-73.9); Platelet Count 509 T/CUMM (130-400); Red Cell Distribution Width 17.1 % (9.3-17.3)
[2020-01-03 04:36] LABS: White Blood Count 41.7 T/CUMM (4-12)
[2020-01-03] MEDS: SODIUM CHLORIDE 0.9% 1,000 ML IV SCH ×2 (04:51→17:57)
[2020-01-03 04:58] LABS: Band Neutrophils 3 % (0-10); Lymphocytes 1 % (20-55); Platelet Estimate Adequate; Segmented Neutrophils 92 % (50-85); Total Cells Counted 100
[2020-01-03 04:59] LABS: Hypochromasia 1+
[2020-01-03 05:51] LABS: Albumin 1.4 G/DL (3.4-5.0); Bilirubin,Total 0.4 MG/DL (0.2-1.0); Calcium 7.6 MG/DL (8.5-10.1); Osmolality,Calculated 278.2 MOS/KG (273-304); Total Protein 5.3 G/DL (6.4-8.3)
[2020-01-03] MEDS ORDERED: SODIUM CHLORIDE 0.9% 1,000 ML IV ONE (10:30)
[2020-01-03] MEDS: PANTOPRAZOLE 40 MG VIAL IV SCH ×2 (10:46→21:05)
[2020-01-03] MEDS: PIPERACILLIN/TAZOBACTAM 3,375 MG in SODIUM CHLORIDE 0.9% 100 ML IV SCH ×3 (10:52→21:10)
[2020-01-03 11:58] LABS: INR 3.1; PT Patient Result 30.9 SECS (9.8-11.9)
[2020-01-03] MEDS: DOPamine 800 MG/250 ML PREMIX IV PRN (17:58)
[2020-01-04] MEDS ORDERED: NOREPINEPHRINE 8 MG in SODIUM CHLORIDE 0.9% 242 ML IV PRN (01:31)
[2020-01-04] MEDS: SODIUM CHLORIDE 0.9% 1,000 ML IV SCH ×4 (04:43→23:49)
[2020-01-04] MEDS: PANTOPRAZOLE 40 MG VIAL IV SCH ×2 (09:00→21:49)
[2020-01-04] MEDS: PIPERACILLIN/TAZOBACTAM 3,375 MG in SODIUM CHLORIDE 0.9% 100 ML IV SCH ×3 (09:00→16:11)
[2020-01-04 09:07] LABS: INR 2.2
[2020-01-04 09:51] LABS: Basophils # 0.1 10*3/uL (0.0-0.2); Basophils % 0.4 % (0.0-0.8); Eosinophils # 0.1 10*3/uL (0.0-0.87); Eosinophils % 0.3 % (0.00-10.9); Hematocrit 28.8 VOL% (35.7-47.0); Hemoglobin 9.7 GM/DL (12.0-16.0); Immature Granulocytes % 2.4 %; Immature Granulocytes Absolute 0.93 #; Lymphocytes # 1.4 10*3/uL (1.4-4.0); Lymphocytes % 3.7 % (21.3-54.2); Mean Corpuscular HGB Conc 33.7 GM/DL (32-36); Mean Corpuscular Volume 87.5 FL (87-102); Mean Platelet Volume 9.7 FL (9.6-12.0); Neutrophils % 88.2 % (38.7-73.9); Platelet Count 502 T/CUMM (130-400); Red Blood Count 3.29 MC/CUMM (3.8-5.5); Red Cell Distribution Width 17.7 % (9.3-17.3); White Blood Count 39.2 T/CUMM (4-12)
[2020-01-04 09:52] LABS: Albumin 1.3 G/DL (3.4-5.0); Bilirubin,Total 0.4 MG/DL (0.2-1.0); Calcium 7.3 MG/DL (8.5-10.1); Osmolality,Calculated 284.2 MOS/KG (273-304); Total Protein 4.8 G/DL (6.4-8.3)
[2020-01-04 10:35] LABS: Band Neutrophils 8 % (0-10); Hypochromasia 1+; Lymphocytes 3 % (20-55); Platelet Estimate Adequate; Segmented Neutrophils 83 % (50-85); Total Cells Counted 100
[2020-01-04] MEDS: DOPamine 800 MG/250 ML PREMIX IV PRN (15:10)
[2020-01-05] MEDS: PIPERACILLIN/TAZOBACTAM 3,375 MG in SODIUM CHLORIDE 0.9% 100 ML IV SCH ×4 (01:18→23:02)
[2020-01-05 04:39] LABS: Basophils # 0.1 10*3/uL (0.0-0.2); Basophils % 0.2 % (0.0-0.8); Eosinophils # 0.1 10*3/uL (0.0-0.87); Eosinophils % 0.4 % (0.00-10.9); Hematocrit 29.2 VOL% (35.7-47.0); Hemoglobin 9.5 GM/DL (12.0-16.0); Immature Granulocytes % 2.3 %; Immature Granulocytes Absolute 0.75 #; Lymphocytes # 1.5 10*3/uL (1.4-4.0); Lymphocytes % 4.5 % (21.3-54.2); Mean Corpuscular HGB Conc 32.5 GM/DL (32-36); Mean Corpuscular Volume 88.5 FL (87-102); Mean Platelet Volume 9.7 FL (9.6-12.0); Monocytes % 4.9 % (1.7-12.7); Neutrophils % 87.7 % (38.7-73.9); Platelet Count 505 T/CUMM (130-400); Red Cell Distribution Width 17.8 % (9.3-17.3); White Blood Count 32.6 T/CUMM (4-12)
[2020-01-05 04:46] LABS: INR 1.5; PT Patient Result 16.1 SECS (9.8-11.9)
[2020-01-05 04:52] LABS: Calcium 7.4 MG/DL (8.5-10.1); Osmolality,Calculated 287.7 MOS/KG (273-304)
[2020-01-05 05:10] LABS: Lymphocytes 6 % (20-55); Platelet Estimate Increased; Segmented Neutrophils 89 % (50-85); Total Cells Counted 100
[2020-01-05 05:14] LABS: Hypochromasia 1+; Microcytosis 1+
[2020-01-05] MEDS: SODIUM CHLORIDE 0.9% 1,000 ML IV SCH ×4 (07:09→20:18)
[2020-01-05] MEDS: PANTOPRAZOLE 40 MG VIAL IV SCH ×2 (09:46→20:15)
[2020-01-05] MEDS: VANCOMYCIN INJ 1,000 MG in SODIUM CHLORIDE 0.9% 250 ML IV SCH (16:34)
[2020-01-05] MEDS: DOPamine 800 MG/250 ML PREMIX IV PRN (16:48)
[2020-01-06] MEDS: SODIUM CHLORIDE 0.9% 1,000 ML IV SCH ×4 (01:17→21:00)
[2020-01-06 04:05] LABS: Basophils % 0.2 % (0.0-0.8); Eosinophils # 0.3 10*3/uL (0.0-0.87); Eosinophils % 1.1 % (0.00-10.9); Hematocrit 30.2 VOL% (35.7-47.0); Hemoglobin 9.7 GM/DL (12.0-16.0); Immature Granulocytes % 2.3 %; Lymphocytes # 1.4 10*3/uL (1.4-4.0); Lymphocytes % 6.4 % (21.3-54.2); Mean Corpuscular HGB Conc 32.1 GM/DL (32-36); Mean Corpuscular Volume 88.8 FL (87-102); Platelet Count 522 T/CUMM (130-400); Red Cell Distribution Width 17.6 % (9.3-17.3)
[2020-01-06 04:24] LABS: Calcium 7.4 MG/DL (8.5-10.1); Osmolality,Calculated 289.3 MOS/KG (273-304)
[2020-01-06 04:25] LABS: INR 1.5; PT Patient Result 15.7 SECS (9.8-11.9)
[2020-01-06 04:30] LABS: Hypochromasia 1+; Lymphocytes 6 % (20-55); Platelet Estimate Adequate; Segmented Neutrophils 88 % (50-85); Total Cells Counted 100
[2020-01-06 04:31] LABS: Microcytosis 1+
[2020-01-06] MEDS: PIPERACILLIN/TAZOBACTAM 3,375 MG in SODIUM CHLORIDE 0.9% 100 ML IV SCH ×2 (06:21→15:29)
[2020-01-06] MEDS: PANTOPRAZOLE 40 MG VIAL IV SCH ×2 (08:27→21:45)
[2020-01-06] MEDS: VANCOMYCIN 50 MG/ML 60 ML/BOTTLE PO SCH ×3 (10:17→21:45)
[2020-01-06] MEDS: VANCOMYCIN INJ 1,000 MG in SODIUM CHLORIDE 0.9% 250 ML IV SCH (12:15)
[2020-01-06] MEDS: FAT EMULSION 20% 250 ML IV SCH (15:21)
[2020-01-06] MEDS ORDERED: TRACE ELEMENTS (5) 1 ML, MULTIVITAMIN INJ 10 ML in AMINO ACIDS/DEXT/LYTES 4.25-5% 2,000 ML IV SCH (17:00)
[2020-01-06] MEDS ORDERED: DEXTROSE 10% 1,000 ML IV PRN (17:00)
[2020-01-07] MEDS: PIPERACILLIN/TAZOBACTAM 3,375 MG in SODIUM CHLORIDE 0.9% 100 ML IV SCH ×3 (00:29→17:30)
[2020-01-07] MEDS: VANCOMYCIN 50 MG/ML 60 ML/BOTTLE PO SCH ×4 (03:11→20:40)
[2020-01-07 06:00] LABS: Basophils % 0.2 % (0.0-0.8); Eosinophils # 0.3 10*3/uL (0.0-0.87); Eosinophils % 1.6 % (0.00-10.9); Hematocrit 28.5 VOL% (35.7-47.0); Hemoglobin 9.3 GM/DL (12.0-16.0); Immature Granulocytes % 2.1 %; Immature Granulocytes Absolute 0.37 #; Lymphocytes # 1.5 10*3/uL (1.4-4.0); Lymphocytes % 8.6 % (21.3-54.2); Mean Corpuscular HGB Conc 32.6 GM/DL (32-36); Mean Corpuscular Volume 92.2 FL (87-102); Mean Platelet Volume 9.5 FL (9.6-12.0); Monocytes % 7.2 % (1.7-12.7); Neutrophils % 80.3 % (38.7-73.9); Platelet Count 526 T/CUMM (130-400); Red Blood Count 3.09 MC/CUMM (3.8-5.5); Red Cell Distribution Width 20.4 % (9.3-17.3); White Blood Count 17.8 T/CUMM (4-12)
[2020-01-07 06:16] LABS: Calcium 7.4 MG/DL (8.5-10.1); Osmolality,Calculated 291.1 MOS/KG (273-304)
[2020-01-07] MEDS: SODIUM CHLORIDE 0.9% 1,000 ML IV SCH ×2 (06:34→18:39)
[2020-01-07] MEDS: PANTOPRAZOLE 40 MG VIAL IV SCH ×2 (09:19→20:35)
[2020-01-07] MEDS ORDERED: DEXTROSE 50% 25 GM/50 ML VIAL IV PRN (15:22)
[2020-01-07] MEDS ORDERED: GLUCAGON 1 MG VIAL IM PRN (15:22)
[2020-01-07] MEDS: AMIODARONE 200 MG TABLET PEG SCH (15:51)
[2020-01-07] MEDS ORDERED: LORazepam 2 MG/1 ML VIAL IM ONE (15:52)
[2020-01-07] MEDS ORDERED: LORazepam 2 MG/1 ML VIAL ONE (15:52)
[2020-01-07] MEDS: VANCOMYCIN INJ 1,000 MG in SODIUM CHLORIDE 0.9% 250 ML IV SCH (17:30)
[2020-01-07] MEDS: carvediloL 12.5 MG TABLET PEG SCH (17:30)
[2020-01-07] MEDS: FAT EMULSION 20% 250 ML IV SCH (17:30)
[2020-01-07] MEDS: TRACE ELEMENTS (5) 1 ML, MULTIVITAMIN INJ 10 ML in AMINO ACIDS/DEXT/LYTES 5-15% 2,000 ML IV SCH (18:08)
[2020-01-07] MEDS: INSULIN LISPRO 100 UNIT/ML SUBCUT SCH (18:38)
[2020-01-07] MEDS: ASCORBIC ACID 500 MG TABLET PEG SCH (20:40)
[2020-01-07] MEDS: NYSTATIN 500,000 UNIT/5 ML UDCUP SWISH/SWAL SCH (20:46)
[2020-01-08] MEDS: INSULIN LISPRO 100 UNIT/ML SUBCUT SCH ×4 (00:26→18:41)
[2020-01-08] MEDS: PIPERACILLIN/TAZOBACTAM 3,375 MG in SODIUM CHLORIDE 0.9% 100 ML IV SCH (00:26)
[2020-01-08] MEDS: VANCOMYCIN 50 MG/ML 60 ML/BOTTLE PO SCH ×4 (03:44→20:30)
[2020-01-08 06:23] LABS: Calcium 7.4 MG/DL (8.5-10.1)
[2020-01-08 06:32] LABS: Basophils % 0.2 % (0.0-0.8); Eosinophils # 0.5 10*3/uL (0.0-0.87); Eosinophils % 2.2 % (0.00-10.9); Hematocrit 24.3 VOL% (35.7-47.0); Hemoglobin 8.4 GM/DL (12.0-16.0); Immature Granulocytes % 1.9 %; Immature Granulocytes Absolute 0.41 #; Lymphocytes # 1.1 10*3/uL (1.4-4.0); Mean Corpuscular HGB Conc 34.6 GM/DL (32-36); Mean Corpuscular Volume 100.4 FL (87-102); Mean Platelet Volume 9.6 FL (9.6-12.0); Monocytes % 6.8 % (1.7-12.7); Neutrophils % 83.9 % (38.7-73.9); Platelet Count 442 T/CUMM (130-400); Red Blood Count 2.42 MC/CUMM (3.8-5.5); Red Cell Distribution Width 23.5 % (9.3-17.3); White Blood Count 21.9 T/CUMM (4-12)
[2020-01-08 08:10] LABS: Eosinophils 1 % (0-10); Lymphocytes 3 % (20-55); Platelet Estimate Increased
[2020-01-08 08:15] LABS: Segmented Neutrophils 90 % (50-85); Total Cells Counted 100
[2020-01-08 08:16] LABS: Anisocytosis 2+; Burr Cells 1+; Hypochromasia Slight; Macrocytosis 2+
[2020-01-08] MEDS ORDERED: MULTIVITAMIN PEG SCH (09:00)
[2020-01-08] MEDS: carvediloL 12.5 MG TABLET PEG SCH ×2 (10:10→16:14)
[2020-01-08] MEDS: CHOLECALCIFEROL 1,000 UNIT TABLET PEG SCH (10:10)
[2020-01-08] MEDS: ASPIRIN CHEW 81 MG TABLET PO SCH (10:10)
[2020-01-08] MEDS: AMIODARONE 200 MG TABLET PEG SCH (10:10)
[2020-01-08] MEDS: SERTRALINE 50 MG TABLET PEG SCH (10:10)
[2020-01-08] MEDS: ASCORBIC ACID 500 MG TABLET PEG SCH (10:11)
[2020-01-08] MEDS: PANTOPRAZOLE 40 MG VIAL IV SCH (10:11)
[2020-01-08] MEDS: NYSTATIN 500,000 UNIT/5 ML UDCUP SWISH/SWAL SCH ×4 (10:12→20:30)
[2020-01-08] MEDS: FAMOTIDINE 20 MG/2 ML VIAL IV SCH (16:11)
[2020-01-08] MEDS: FAT EMULSION 20% 250 ML IV SCH (16:12)
[2020-01-08] MEDS: TRACE ELEMENTS (5) 1 ML, MULTIVITAMIN INJ 10 ML in AMINO ACIDS/DEXT/LYTES 5-15% 2,000 ML IV SCH ×2 (16:14→21:29)
[2020-01-09] MEDS: INSULIN LISPRO 100 UNIT/ML SUBCUT SCH ×4 (00:30→17:01)
[2020-01-09] MEDS: FAMOTIDINE 20 MG/2 ML VIAL IV SCH ×2 (03:30→13:22)
[2020-01-09] MEDS: VANCOMYCIN 50 MG/ML 60 ML/BOTTLE PO SCH ×4 (03:30→21:00)
[2020-01-09 05:37] LABS: Basophils % 0.2 % (0.0-0.8); Eosinophils # 0.4 10*3/uL (0.0-0.87); Eosinophils % 1.8 % (0.00-10.9); Hematocrit 24.4 VOL% (35.7-47.0); Hemoglobin 8.5 GM/DL (12.0-16.0); Immature Granulocytes % 2.4 %; Immature Granulocytes Absolute 0.49 #; Lymphocytes # 1.7 10*3/uL (1.4-4.0); Lymphocytes % 8.5 % (21.3-54.2); Mean Corpuscular HGB Conc 34.8 GM/DL (32-36); Mean Corpuscular Volume 99.6 FL (87-102); Mean Platelet Volume 9.2 FL (9.6-12.0); Monocytes % 6.4 % (1.7-12.7); Neutrophils % 80.7 % (38.7-73.9); Platelet Count 420 T/CUMM (130-400); Red Blood Count 2.45 MC/CUMM (3.8-5.5); White Blood Count 20.5 T/CUMM (4-12)
[2020-01-09 06:17] LABS: Anisocytosis 1+; Band Neutrophils 9 % (0-10); Lymphocytes 8 % (20-55); Platelet Estimate Normal; Segmented Neutrophils 75 % (50-85); Total Cells Counted 100
[2020-01-09 06:18] LABS: Burr Cells Few
[2020-01-09 06:19] LABS: Macrocytosis 1+
[2020-01-09] MEDS: NYSTATIN 500,000 UNIT/5 ML UDCUP SWISH/SWAL SCH ×4 (09:22→21:00)
[2020-01-09] MEDS: ASPIRIN CHEW 81 MG TABLET PO SCH (09:22)
[2020-01-09] MEDS: carvediloL 12.5 MG TABLET PEG SCH ×2 (09:22→16:30)
[2020-01-09] MEDS: AMIODARONE 200 MG TABLET PEG SCH (09:22)
[2020-01-09] MEDS: CHOLECALCIFEROL 1,000 UNIT TABLET PEG SCH (09:23)
[2020-01-09] MEDS: SERTRALINE 50 MG TABLET PEG SCH (09:23)
[2020-01-09 10:27] LABS: ABG Base Excess -3.9 MMOL/L (-2.5-2.5); ABG HCO3 21.1 MMOL/L (20-26); ABG Oxygen Saturation 96.9 % (95-100); ABG PCO2 31.1 MM HG (35-48); ABG PH 7.416 (7.35-7.45); ABG PO2 82.4 MM HG (80-95); ABG TCO2 18.6 MMOL/L (23-27); Allen Test Positive; Pt O2 Delivery Device Room Air
[2020-01-09 10:29] LABS: Bacteria,Urine Occasional /HPF (Few); Bilirubin,Urine Negative (Negative); Blood, Urine Small mg/dL (Negative); Glucose,Urine (UA) 50 mg/dL (Negative); Ketones,Urine Negative (Negative); Mucus,Urine Occasional /LPF (Occasional); Nitrite,Urine Negative (Negative); Protein,Urine 30 MG/DL; RBC,Urine 64 /HPF (0-4); Squamous Epithelial Cell,Urine Occasional /HPF (0-10); Uric Acid Crystals,Urine Occasional /HPF (<1); Urine Appearance CLOUDY (Clear); Urine Color Yellow (Yellow); Urine Specific Gravity 1.019 (1.001-1.035); Urine Urobilinogen < 2.0 EU/DL (0.2-1.0); WBC,Urine 6 /HPF (0-6)
[2020-01-09 13:14] LABS: Thyroid Stimulating Hormone 3.64 uIU/ml (0.358-3.74)
[2020-01-09] MEDS: ENOXAPARIN 40 MG/0.4 ML SYRINGE SUBCUT SCH (13:20)
[2020-01-09] MEDS: FAT EMULSION 20% 250 ML IV SCH (13:21)
[2020-01-09] MEDS: TRACE ELEMENTS (5) 1 ML, MULTIVITAMIN INJ 10 ML in AMINO ACIDS/DEXT/LYTES 5-15% 2,000 ML IV SCH (16:16)
[2020-01-10] MEDS: INSULIN LISPRO 100 UNIT/ML SUBCUT SCH ×4 (00:07→19:51)
[2020-01-10] MEDS: FAMOTIDINE 20 MG/2 ML VIAL IV SCH ×2 (01:36→14:14)
[2020-01-10] MEDS: VANCOMYCIN 50 MG/ML 60 ML/BOTTLE PO SCH ×4 (02:24→19:51)
[2020-01-10 06:05] LABS: Albumin 1.2 G/DL (3.4-5.0); Bilirubin,Total 0.6 MG/DL (0.2-1.0); Calcium 7.1 MG/DL (8.5-10.1); Osmolality,Calculated 287.3 MOS/KG (273-304); Total Protein 4.4 G/DL (6.4-8.3)
[2020-01-10 06:30] LABS: Basophils % 0.2 % (0.0-0.8); Eosinophils # 0.4 10*3/uL (0.0-0.87); Eosinophils % 2.5 % (0.00-10.9); Hematocrit 21.2 VOL% (35.7-47.0); Hemoglobin 8.2 GM/DL (12.0-16.0); Immature Granulocytes % 2.2 %; Immature Granulocytes Absolute 0.38 #; Lymphocytes # 1.6 10*3/uL (1.4-4.0); Lymphocytes % 9.2 % (21.3-54.2); Mean Corpuscular HGB Conc 38.7 GM/DL (32-36); Mean Corpuscular Volume 101.9 FL (87-102); Mean Platelet Volume 9.2 FL (9.6-12.0); Monocytes % 6.1 % (1.7-12.7); Neutrophils % 79.8 % (38.7-73.9); Platelet Count 386 T/CUMM (130-400); Red Blood Count 2.08 MC/CUMM (3.8-5.5); White Blood Count 17.5 T/CUMM (4-12)
[2020-01-10 06:50] LABS: Hypochromasia 1+; Platelet Estimate Adequate
[2020-01-10] MEDS: NYSTATIN 500,000 UNIT/5 ML UDCUP SWISH/SWAL SCH ×4 (13:54→19:51)
[2020-01-10] MEDS: CHOLECALCIFEROL 1,000 UNIT TABLET PEG SCH (13:55)
[2020-01-10] MEDS: ASPIRIN CHEW 81 MG TABLET PO SCH (13:56)
[2020-01-10] MEDS: SERTRALINE 50 MG TABLET PEG SCH (13:56)
[2020-01-10] MEDS: carvediloL 12.5 MG TABLET PEG SCH ×2 (14:00→16:41)
[2020-01-10] MEDS: AMIODARONE 200 MG TABLET PEG SCH (14:15)
[2020-01-10] MEDS: ENOXAPARIN 40 MG/0.4 ML SYRINGE SUBCUT SCH (14:15)
[2020-01-10] MEDS ORDERED: MAGNESIUM SULF RIDER 2 GM in PREMIX 1 EACH IV ONE (15:34)
[2020-01-10] MEDS: TRACE ELEMENTS (5) 1 ML, MULTIVITAMIN INJ 10 ML in AMINO ACIDS/DEXT/LYTES 5-15% 2,000 ML IV SCH (22:05)
[2020-01-10] MEDS: FAT EMULSION 20% 250 ML IV SCH (22:32)
[2020-01-11] MEDS: INSULIN LISPRO 100 UNIT/ML SUBCUT SCH ×3 (01:17→18:42)
[2020-01-11] MEDS: FAMOTIDINE 20 MG/2 ML VIAL IV SCH ×2 (02:15→18:41)
[2020-01-11] MEDS: VANCOMYCIN 50 MG/ML 60 ML/BOTTLE PO SCH ×4 (03:50→22:13)
[2020-01-11 05:51] LABS: Calcium 7.2 MG/DL (8.5-10.1); Osmolality,Calculated 285.4 MOS/KG (273-304)
[2020-01-11] MEDS: SERTRALINE 50 MG TABLET PEG SCH (10:56)
[2020-01-11] MEDS: CHOLECALCIFEROL 1,000 UNIT TABLET PEG SCH (10:58)
[2020-01-11] MEDS: AMIODARONE 200 MG TABLET PEG SCH (10:58)
[2020-01-11] MEDS: ASPIRIN CHEW 81 MG TABLET PO SCH (10:58)
[2020-01-11] MEDS: carvediloL 12.5 MG TABLET PEG SCH ×2 (11:01→18:44)
[2020-01-11] MEDS: NYSTATIN 500,000 UNIT/5 ML UDCUP SWISH/SWAL SCH ×4 (11:01→22:13)
[2020-01-11] MEDS: ENOXAPARIN 40 MG/0.4 ML SYRINGE SUBCUT SCH (18:41)
[2020-01-12] MEDS: FAT EMULSION 20% 250 ML IV SCH ×2 (00:17→15:20)
[2020-01-12] MEDS: VANCOMYCIN 50 MG/ML 60 ML/BOTTLE PO SCH ×4 (02:28→22:08)
[2020-01-12] MEDS: FAMOTIDINE 20 MG/2 ML VIAL IV SCH ×2 (02:30→15:20)
[2020-01-12] MEDS: TRACE ELEMENTS (5) 1 ML, MULTIVITAMIN INJ 10 ML in AMINO ACIDS/DEXT/LYTES 5-15% 2,000 ML IV SCH ×2 (03:43→17:25)
[2020-01-12] MEDS: INSULIN LISPRO 100 UNIT/ML SUBCUT SCH ×4 (06:00→17:25)
[2020-01-12] MEDS: carvediloL 12.5 MG TABLET PEG SCH ×2 (09:53→17:24)
[2020-01-12] MEDS: CHOLECALCIFEROL 1,000 UNIT TABLET PEG SCH (09:53)
[2020-01-12] MEDS: NYSTATIN 500,000 UNIT/5 ML UDCUP SWISH/SWAL SCH ×4 (09:53→22:08)
[2020-01-12] MEDS: ASPIRIN CHEW 81 MG TABLET PO SCH (09:53)
[2020-01-12] MEDS: AMIODARONE 200 MG TABLET PEG SCH (09:53)
[2020-01-12] MEDS: SERTRALINE 50 MG TABLET PEG SCH (09:53)
[2020-01-12] MEDS: ENOXAPARIN 40 MG/0.4 ML SYRINGE SUBCUT SCH (15:20)
[2020-01-13] MEDS: INSULIN LISPRO 100 UNIT/ML SUBCUT SCH ×4 (00:49→17:50)
[2020-01-13] MEDS: FAMOTIDINE 20 MG/2 ML VIAL IV SCH ×2 (01:48→13:26)
[2020-01-13] MEDS: VANCOMYCIN 50 MG/ML 60 ML/BOTTLE PO SCH ×4 (04:13→21:34)
[2020-01-13 08:12] LABS: Calcium 7.1 MG/DL (8.5-10.1)
[2020-01-13] MEDS: AMIODARONE 200 MG TABLET PEG SCH (08:47)
[2020-01-13] MEDS: ASPIRIN CHEW 81 MG TABLET PO SCH (08:47)
[2020-01-13] MEDS: CHOLECALCIFEROL 1,000 UNIT TABLET PEG SCH (08:47)
[2020-01-13] MEDS: carvediloL 12.5 MG TABLET PEG SCH ×2 (08:47→17:37)
[2020-01-13] MEDS: SERTRALINE 50 MG TABLET PEG SCH (08:47)
[2020-01-13] MEDS: NYSTATIN 500,000 UNIT/5 ML UDCUP SWISH/SWAL SCH ×4 (08:52→21:34)
[2020-01-13] MEDS: ENOXAPARIN 40 MG/0.4 ML SYRINGE SUBCUT SCH (13:26)
[2020-01-13] MEDS: WARFARIN 3 MG TABLET PO SCH (17:37)
[2020-01-14] MEDS: INSULIN LISPRO 100 UNIT/ML SUBCUT SCH ×4 (00:50→18:07)
[2020-01-14] MEDS: FAMOTIDINE 20 MG/2 ML VIAL IV SCH (02:22)
[2020-01-14] MEDS: VANCOMYCIN 50 MG/ML 60 ML/BOTTLE PO SCH ×4 (03:06→22:28)
[2020-01-14 06:12] LABS: INR 1.1; PT Patient Result 11.3 SECS (9.8-11.9)
[2020-01-14 06:40] LABS: Calcium 7.1 MG/DL (8.5-10.1)
[2020-01-14] MEDS: carvediloL 12.5 MG TABLET PEG SCH ×2 (09:38→16:43)
[2020-01-14] MEDS: ASPIRIN CHEW 81 MG TABLET PO SCH (09:38)
[2020-01-14] MEDS: CHOLECALCIFEROL 1,000 UNIT TABLET PEG SCH (09:39)
[2020-01-14] MEDS: AMIODARONE 200 MG TABLET PEG SCH (09:39)
[2020-01-14] MEDS: SERTRALINE 50 MG TABLET PEG SCH (09:42)
[2020-01-14] MEDS: NYSTATIN 500,000 UNIT/5 ML UDCUP SWISH/SWAL SCH ×4 (09:42→22:28)
[2020-01-14] MEDS: ENOXAPARIN 40 MG/0.4 ML SYRINGE SUBCUT SCH (13:18)
[2020-01-14] MEDS: MAGNESIUM GLUCONATE 200 MG/ML 30 ML/BOTTLE PO SCH (16:43)
[2020-01-14] MEDS: WARFARIN 3 MG TABLET PO SCH (18:02)
[2020-01-15] MEDS: INSULIN LISPRO 100 UNIT/ML SUBCUT SCH ×4 (00:47→18:12)
[2020-01-15] MEDS: VANCOMYCIN 50 MG/ML 60 ML/BOTTLE PO SCH ×4 (04:00→22:00)
[2020-01-15 05:45] LABS: PT Patient Result 11.2 SECS (9.8-11.9)
[2020-01-15] MEDS: ASPIRIN CHEW 81 MG TABLET PO SCH (10:45)
[2020-01-15] MEDS: carvediloL 12.5 MG TABLET PEG SCH ×2 (10:45→17:51)
[2020-01-15] MEDS: AMIODARONE 200 MG TABLET PEG SCH (10:46)
[2020-01-15] MEDS: CHOLECALCIFEROL 1,000 UNIT TABLET PEG SCH (10:46)
[2020-01-15] MEDS: SERTRALINE 50 MG TABLET PEG SCH (10:46)
[2020-01-15] MEDS: MAGNESIUM GLUCONATE 200 MG/ML 30 ML/BOTTLE PO SCH (10:50)
[2020-01-15] MEDS: NYSTATIN 500,000 UNIT/5 ML UDCUP SWISH/SWAL SCH ×4 (10:51→22:00)
[2020-01-15] MEDS: ENOXAPARIN 40 MG/0.4 ML SYRINGE SUBCUT SCH (13:20)
[2020-01-15] MEDS ORDERED: WARFARIN 4 MG TABLET PO SCH (18:00)
[2020-01-16] MEDS: INSULIN LISPRO 100 UNIT/ML SUBCUT SCH ×4 (01:39→18:24)
[2020-01-16] MEDS: VANCOMYCIN 50 MG/ML 60 ML/BOTTLE PO SCH ×4 (03:17→21:33)
[2020-01-16] MEDS: carvediloL 12.5 MG TABLET PEG SCH ×2 (10:25→18:06)
[2020-01-16] MEDS: SERTRALINE 50 MG TABLET PEG SCH (10:25)
[2020-01-16] MEDS: CHOLECALCIFEROL 1,000 UNIT TABLET PEG SCH (10:26)
[2020-01-16] MEDS: ASPIRIN CHEW 81 MG TABLET PO SCH (10:26)
[2020-01-16] MEDS: AMIODARONE 200 MG TABLET PEG SCH (10:35)
[2020-01-16] MEDS: NYSTATIN 500,000 UNIT/5 ML UDCUP SWISH/SWAL SCH ×4 (10:35→21:33)
[2020-01-16] MEDS: MAGNESIUM GLUCONATE 200 MG/ML 30 ML/BOTTLE PO SCH (10:35)
[2020-01-16] MEDS ORDERED: ONDANSETRON 4 MG/2 ML VIAL IV PRN (10:44)
[2020-01-16] MEDS: ENOXAPARIN 40 MG/0.4 ML SYRINGE SUBCUT SCH (14:31)
[2020-01-16] MEDS ORDERED: WARFARIN 5 MG TABLET PO SCH (18:00)
[2020-01-17] MEDS: INSULIN LISPRO 100 UNIT/ML SUBCUT SCH ×3 (00:42→11:57)
[2020-01-17] MEDS: VANCOMYCIN 50 MG/ML 60 ML/BOTTLE PO SCH ×2 (04:10→08:52)
[2020-01-17 05:13] LABS: PT Patient Result 11.1 SECS (9.8-11.9)
[2020-01-17 05:20] LABS: Calcium 7.2 MG/DL (8.5-10.1)
[2020-01-17] MEDS: carvediloL 12.5 MG TABLET PEG SCH (08:45)
[2020-01-17] MEDS: SERTRALINE 50 MG TABLET PEG SCH (08:45)
[2020-01-17] MEDS: ASPIRIN CHEW 81 MG TABLET PO SCH (08:45)
[2020-01-17] MEDS: AMIODARONE 200 MG TABLET PEG SCH (08:45)
[2020-01-17] MEDS: NYSTATIN 500,000 UNIT/5 ML UDCUP SWISH/SWAL SCH ×2 (08:46→12:47)
[2020-01-17] MEDS: MAGNESIUM GLUCONATE 200 MG/ML 30 ML/BOTTLE PO SCH (08:53)
[2020-01-17 11:20] VITALS: BP 139/49
[2020-01-17] MEDS: CHOLECALCIFEROL 1,000 UNIT TABLET PEG SCH (12:46)
[2020-01-17] MEDS: ENOXAPARIN 40 MG/0.4 ML SYRINGE SUBCUT SCH (12:47)
== END 2020-01-17 14:50 | DRG 871 ==
LOC: EDBD → EDUNIT# → N.ED 12:38 → SUATTDRO 15:49 → N.EDINP 15:49 → N.ICU 16:48 → N.3E 01-07 21:27
PROVIDERS: ADMIT Internal Medicine; ATTEND Family Medicine

== ENCOUNTER 2020-01-26 11:23 | Inpatient (IN) ==
[2020-01-26] MEDS ORDERED: cefTRIAXone 1,000 MG in SODIUM CHLORIDE 0.9% 100 ML IV STA (12:53)
[2020-01-26] MEDS ORDERED: AZITHROMYCIN INJ 500 MG in SODIUM CHLORIDE 0.9% 250 ML IV STA (12:53)
[2020-01-26 13:26] LABS: Bilirubin,Urine Negative (Negative); Blood, Urine Negative (Negative); Glucose,Urine (UA) Negative (Negative); Ketones,Urine Negative (Negative); Mucus,Urine Occasional /LPF (Occasional); Nitrite,Urine Negative (Negative); Protein,Urine 30 MG/DL; RBC,Urine 6 /HPF (0-4); Squamous Epithelial Cell,Urine Occasional /HPF (0-10); Urine Appearance CLOUDY (Clear); Urine Color Amber (Yellow); Urine Specific Gravity 1.016 (1.001-1.035); Urine Urobilinogen < 2.0 EU/DL (0.2-1.0); WBC,Urine 448 /HPF (0-6)
[2020-01-26 13:27] LABS: Basophils % 0.2 % (0.0-0.8); Eosinophils % 0.3 % (0.00-10.9); Hematocrit 20.8 VOL% (35.7-47.0); Hemoglobin 7.6 GM/DL (12.0-16.0); Immature Granulocytes % 0.4 %; Immature Granulocytes Absolute 0.05 #; Lymphocytes % 17.2 % (21.3-54.2); Mean Corpuscular HGB Conc 36.5 GM/DL (32-36); Mean Corpuscular Volume 97.2 FL (87-102); Mean Platelet Volume 8.9 FL (9.6-12.0); Monocytes % 9.7 % (1.7-12.7); Neutrophils % 72.2 % (38.7-73.9); Platelet Count 449 T/CUMM (130-400); Red Blood Count 2.14 MC/CUMM (3.8-5.5); Red Cell Distribution Width 22.6 % (9.3-17.3); White Blood Count 11.7 T/CUMM (4-12)
[2020-01-26 13:49] LABS: Anisocytosis 1+; Hypochromasia 1+
[2020-01-26 13:50] LABS: Platelet Estimate Increased; Polychromasia Few; Target Cells Few
[2020-01-26 13:53] LABS: Alanine Aminotransferase 24 U/L (13-56); Albumin 1.3 G/DL (3.4-5.0); Alkaline Phosphatase 104 U/L (45-117); Aspartate Amino Transferase 36 U/L (0-37); Bilirubin,Total < 0.39 MG/DL (0.2-1.0); Blood Urea Nitrogen 21 MG/DL (7-18); Calcium 7.3 MG/DL (8.5-10.1); Estimated Glom Filtration Rate 82 ML/MIN; Glucose 95 MG/DL (74-106); Osmolality,Calculated 264.7 MOS/KG (273-304); Total Protein 5.5 G/DL (6.4-8.3)
[2020-01-26 14:03] LABS: Ferritin 185.2 ng/ml (8-252)
[2020-01-26] MEDS ORDERED: GLUCAGON 1 MG VIAL IM PRN (14:13)
[2020-01-26] MEDS ORDERED: DEXTROSE 50% 25 GM/50 ML VIAL IV PRN (14:13)
[2020-01-26] MEDS ORDERED: SODIUM CHLORIDE 0.9% 1,000 ML IV PRN (14:24)
[2020-01-26] MEDS ORDERED: SODIUM CHLORIDE 0.9% 1,000 ML IV SCH (14:30)
[2020-01-26 14:45] LABS: Risk Ratio 2.97; Thyroid Stimulating Hormone 3.44 uIU/ml (0.358-3.74); VLDL CHOLESTEROL 10.4 MG/DL
[2020-01-26] MEDS ORDERED: cloNIDine 0.2 MG/24 HR PATCH TRANSDERM SCH (17:30)
[2020-01-26] MEDS: ENOXAPARIN 40 MG/0.4 ML SYRINGE SUBCUT SCH (18:37)
[2020-01-26] MEDS: ACETAMINOPHEN 325 MG TABLET PO PRN (21:42)
[2020-01-26] MEDS: DEXAMETHASONE 4 MG TABLET PO SCH (21:42)
[2020-01-26] MEDS: ASCORBIC ACID 500 MG TABLET PEG SCH (21:42)
[2020-01-27 06:10] LABS: Basophils % 0.1 % (0.0-0.8); Hematocrit 22.5 VOL% (35.7-47.0); Hemoglobin 7.3 GM/DL (12.0-16.0); Immature Granulocytes % 0.5 %; Immature Granulocytes Absolute 0.04 #; Lymphocytes # 0.9 10*3/uL (1.4-4.0); Lymphocytes % 11.6 % (21.3-54.2); Mean Corpuscular HGB Conc 32.4 GM/DL (32-36); Mean Corpuscular Volume 93.4 FL (87-102); Mean Platelet Volume 9.4 FL (9.6-12.0); Monocytes % 2.4 % (1.7-12.7); Neutrophils % 85.4 % (38.7-73.9); Platelet Count 426 T/CUMM (130-400); Red Blood Count 2.41 MC/CUMM (3.8-5.5); Red Cell Distribution Width 20.9 % (9.3-17.3)
[2020-01-27 06:30] LABS: Calcium 7.6 MG/DL (8.5-10.1); Osmolality,Calculated 263.9 MOS/KG (273-304)
[2020-01-27] MEDS ORDERED: PANTOPRAZOLE 40 MG TABLET PO SCH (09:00)
[2020-01-27] MEDS: AMIODARONE 200 MG TABLET PEG SCH (09:07)
[2020-01-27] MEDS: carvediloL 12.5 MG TABLET PEG SCH ×2 (09:07→16:14)
[2020-01-27] MEDS: ASCORBIC ACID 500 MG TABLET PEG SCH ×2 (09:07→20:08)
[2020-01-27] MEDS: DEXAMETHASONE 4 MG TABLET PO SCH ×2 (09:07→20:08)
[2020-01-27] MEDS ORDERED: SODIUM CHLORIDE 0.9% 1,000 ML IV PRN (13:31)
[2020-01-27] MEDS ORDERED: REMDESIVIR 200 MG in SODIUM CHLORIDE 0.9% 210 ML IV ONE (14:00)
[2020-01-27] MEDS ORDERED: cefTRIAXone 1,000 MG in SYRINGE 1 EACH IV SCH (14:30)
[2020-01-27] MEDS ORDERED: AZITHROMYCIN INJ 500 MG in SODIUM CHLORIDE 0.9% 250 ML IV SCH (15:00)
[2020-01-27] MEDS: ENOXAPARIN 40 MG/0.4 ML SYRINGE SUBCUT SCH (15:55)
[2020-01-27] MEDS: ACETAMINOPHEN 325 MG TABLET PO PRN (20:09)
[2020-01-27 23:35] LABS: Platelet Count 355 T/CUMM (130-400)
[2020-01-27 23:36] LABS: Hematocrit 32.2 VOL% (35.7-47.0); Hemoglobin 10.8 GM/DL (12.0-16.0)
[2020-01-28 06:22] LABS: Basophils % 0.1 % (0.0-0.8); Hematocrit 30.5 VOL% (35.7-47.0); Immature Granulocytes % 0.4 %; Immature Granulocytes Absolute 0.03 #; Lymphocytes # 0.8 10*3/uL (1.4-4.0); Lymphocytes % 10.6 % (21.3-54.2); Mean Corpuscular HGB Conc 36.1 GM/DL (32-36); Mean Corpuscular Volume 91.6 FL (87-102); Mean Platelet Volume 9.5 FL (9.6-12.0); Monocytes % 5.1 % (1.7-12.7); Neutrophils % 83.8 % (38.7-73.9); Platelet Count 376 T/CUMM (130-400); Red Blood Count 3.33 MC/CUMM (3.8-5.5); Red Cell Distribution Width 18.8 % (9.3-17.3); White Blood Count 7.8 T/CUMM (4-12)
[2020-01-28 06:34] LABS: Calcium 7.8 MG/DL (8.5-10.1); Osmolality,Calculated 273.4 MOS/KG (273-304)
[2020-01-28] MEDS: DEXAMETHASONE 4 MG TABLET PO SCH ×2 (08:51→20:45)
[2020-01-28] MEDS: AMIODARONE 200 MG TABLET PEG SCH (08:51)
[2020-01-28] MEDS: carvediloL 12.5 MG TABLET PEG SCH ×2 (08:51→18:14)
[2020-01-28] MEDS: ASCORBIC ACID 500 MG TABLET PEG SCH ×2 (08:52→20:45)
[2020-01-28] MEDS: REMDESIVIR 100 MG in SODIUM CHLORIDE 0.9% 230 ML IV SCH (10:04)
[2020-01-28] MEDS: OMEPRAZOLE ODT 20 MG TABLET NG SCH (11:45)
[2020-01-28] MEDS: CEFEPIME 1,000 MG in SODIUM CHLORIDE 0.9% 100 ML IV SCH ×2 (13:46→20:45)
[2020-01-28] MEDS: ENOXAPARIN 40 MG/0.4 ML SYRINGE SUBCUT SCH (13:47)
[2020-01-28] MEDS: INSULIN LISPRO 100 UNIT/ML SUBCUT SCH ×2 (18:14→20:45)
[2020-01-28] MEDS: SODIUM HYPOCHLORITE 0.25% IRRIG 473 ML BOTTLE TOP SCH (18:14)
[2020-01-29] MEDS: CEFEPIME 1,000 MG in SODIUM CHLORIDE 0.9% 100 ML IV SCH ×4 (02:29→21:48)
[2020-01-29] MEDS: INSULIN LISPRO 100 UNIT/ML SUBCUT SCH ×3 (05:00→18:09)
[2020-01-29 06:18] LABS: Basophils % 0.1 % (0.0-0.8); Hematocrit 36.5 VOL% (35.7-47.0); Hemoglobin 11.7 GM/DL (12.0-16.0); Immature Granulocytes % 0.4 %; Immature Granulocytes Absolute 0.04 #; Lymphocytes % 9.2 % (21.3-54.2); Mean Corpuscular HGB Conc 32.1 GM/DL (32-36); Mean Corpuscular Volume 93.1 FL (87-102); Mean Platelet Volume 9.2 FL (9.6-12.0); Monocytes % 6.9 % (1.7-12.7); Neutrophils % 83.4 % (38.7-73.9); Platelet Count 377 T/CUMM (130-400); Red Blood Count 3.92 MC/CUMM (3.8-5.5); White Blood Count 10.6 T/CUMM (4-12)
[2020-01-29 06:36] LABS: Calcium 7.9 MG/DL (8.5-10.1); Osmolality,Calculated 273.1 MOS/KG (273-304)
[2020-01-29] MEDS: carvediloL 12.5 MG TABLET PEG SCH ×2 (08:58→16:25)
[2020-01-29] MEDS: AMIODARONE 200 MG TABLET PEG SCH (08:58)
[2020-01-29] MEDS: SODIUM HYPOCHLORITE 0.25% IRRIG 473 ML BOTTLE TOP SCH (08:59)
[2020-01-29] MEDS: DEXAMETHASONE 4 MG TABLET PO SCH ×2 (08:59→21:49)
[2020-01-29] MEDS: COLLAGENASE OINT 30 GM TUBE TOP SCH (08:59)
[2020-01-29] MEDS: ACETAMINOPHEN 325 MG TABLET PO PRN ×2 (08:59→21:49)
[2020-01-29] MEDS: OMEPRAZOLE ODT 20 MG TABLET NG SCH (08:59)
[2020-01-29] MEDS: ASCORBIC ACID 500 MG TABLET PEG SCH ×2 (08:59→21:49)
[2020-01-29] MEDS: REMDESIVIR 100 MG in SODIUM CHLORIDE 0.9% 230 ML IV SCH (10:36)
[2020-01-29] MEDS: ENOXAPARIN 40 MG/0.4 ML SYRINGE SUBCUT SCH (13:45)
[2020-01-30] MEDS: INSULIN LISPRO 100 UNIT/ML SUBCUT SCH ×3 (00:06→13:12)
[2020-01-30] MEDS: CEFEPIME 1,000 MG in SODIUM CHLORIDE 0.9% 100 ML IV SCH ×2 (01:50→09:03)
[2020-01-30] MEDS: ASCORBIC ACID 500 MG TABLET PEG SCH (09:02)
[2020-01-30] MEDS: ACETAMINOPHEN 325 MG TABLET PO PRN (09:02)
[2020-01-30] MEDS: OMEPRAZOLE ODT 20 MG TABLET NG SCH (09:02)
[2020-01-30] MEDS: AMIODARONE 200 MG TABLET PEG SCH (09:03)
[2020-01-30] MEDS: carvediloL 12.5 MG TABLET PEG SCH (09:03)
[2020-01-30] MEDS: DEXAMETHASONE 4 MG TABLET PO SCH (09:03)
[2020-01-30] MEDS: REMDESIVIR 100 MG in SODIUM CHLORIDE 0.9% 230 ML IV SCH (10:03)
[2020-01-30 12:06] VITALS: BP 151/84
[2020-01-30] MEDS: SODIUM HYPOCHLORITE 0.25% IRRIG 473 ML BOTTLE TOP SCH (13:56)
[2020-01-30] MEDS: COLLAGENASE OINT 30 GM TUBE TOP SCH (13:56)
[2020-01-30] MEDS: ENOXAPARIN 40 MG/0.4 ML SYRINGE SUBCUT SCH (15:07)
[2020-01-30] MEDS ORDERED: SULFAMETHOX/TRIMETHOPRIM 800-160 MG TABLET PO SCH (21:00)
== END 2020-01-30 15:30 | DRG 177 ==
LOC: EDBD → EDUNIT# → N.ED 11:23 → N.EDINP 13:31 → N.2E 16:42
PROVIDERS: ADMIT Emergency Medicine; ATTEND Emergency Medicine